=== PATIENT | male | born 1965 | race Hispanic/Latino ===

== ENCOUNTER 2019-02-25 09:00 | Emergency (ER) | payer BC, OTHER ==
[~2019-02-25] VITALS: Ht 165.1 cm; Wt 100.7 kg
[2019-02-25] MEDS ORDERED: PANTOPRAZOLE 40 MG 10ML VIAL IV STA (10:01)
[2019-02-25] MEDS ORDERED: SODIUM CHLORIDE 0.9% 1000ML 1,000 ML IV STA (10:01)
[2019-02-25] MEDS ORDERED: ONDANSETRON HCL INJ 2MG/ML 2ML 2 MG/ML VIAL IV STA (10:01)
[2019-02-25] MEDS ORDERED: SODIUM CHLORIDE 0.9% 1000ML 1,000 ML ONE (10:06)
[2019-02-25 10:31] LABS: BASOPHILS # (AUTO) 0.1 (0.0-0.1); BASOPHILS % 0.8 % (0.0-1.0); EOSINOPHILS # (AUTO) 0.1 (0.0-0.4); EOSINOPHILS % 0.7 % (0.0-6.0); HEMATOCRIT 44.2 % (38.2-49.6); HEMOGLOBIN 15.2 g/dL (14.0-18.0); LYMPHOCYTES # (AUTO) 1.3 (1.0-3.2); MEAN CORPUSCULAR HEMOGLOBIN 29.3 pg (28-32); MEAN CORPUSCULAR HGB CONC 34.4 g/dL (31-35); MEAN CORPUSCULAR VOLUME 85.3 fL (81-99); MONOCYTES # (AUTO) 0.4 (0.2-0.8); MONOCYTES % 4.5 % (4.4-11.3); NEUTROPHILS # (AUTO) 7.1 (2.1-6.9); NEUTROPHILS % 79.8 % (38.7-80.0); PLATELET COUNT 261 x10e3/uL (140-360); RED BLOOD COUNT 5.18 x10e6/uL (4.3-5.7); RED CELL DISTRIBUTION WIDTH 12.7 % (11.7-14.4)
[2019-02-25 10:33] LABS: BILIRUBIN,URINE NEGATIVE (NEGATIVE); CLARITY,URINE CLEAR (CLEAR); COLOR,URINE YELLOW (YELLOW); KETONES,URINE TRACE (NEGATIVE); LEUKOCYTE ESTERASE ,URINE NEGATIVE (NEGATIVE); NITRITE,URINE NEGATIVE (NEGATIVE); PROTEIN,URINE DIPSTICK NEGATIVE (NEGATIVE); URINE UROBILINOGEN 0.2 mg/dL (0.2 - 1)
[2019-02-25 10:38] LABS: INR 0.99; PROTHROMBIN TIME 13.6 seconds (11.9-14.5)
[2019-02-25 10:39] LABS: PARTIAL THROMBOPLASTIN TIME 32.1 seconds (23.8-35.5)
[2019-02-25 10:48] LABS: RBC,URINE 0-5 /HPF (0-5); WBC,URINE (MAN) 0-5 /HPF (0-5)
[2019-02-25 10:49] LABS: BACTERIA,URINE FEW /HPF; EPITHELIAL CELLS,URINE RARE /LPF
[2019-02-25 10:51] LABS: ALANINE AMINOTRANSFERASE 29 IU/L (0-55); ALBUMIN 3.9 g/dL (3.5-5.0); ALBUMIN/GLOBULIN RATIO 0.9 (0.8-2.0); ALKALINE PHOSPHATASE 92 IU/L (40-150); ANION GAP 11.8 mmol/L (8-16); BLOOD UREA NITROGEN 14 mg/dL (7-26); BUN/CREATININE RATIO 17 (6-25); CALCIUM 9.8 mg/dL (8.4-10.2); CARBON DIOXIDE 23 mmol/L (22-29); CHLORIDE 104 mmol/L (98-107); CREATININE, SERUM 0.83 mg/dL (0.72-1.25); EST GLOMERULAR FILTRATION RATE > 60 ML/MIN (60-); GLUCOSE 117 mg/dL (74-118); POTASSIUM 3.8 mmol/L (3.5-5.1); SODIUM 135 mmol/L (136-145)
[2019-02-25 10:57] LABS: CREATINE KINASE 218 IU/L (30-200)
[2019-02-25] MEDS ORDERED: FAMOTIDINE 20 MG/2 ML VIAL IV STA (11:04)
[2019-02-25 11:07] LABS: AMYLASE 36 U/L (25-125); LIPASE 20 U/L (8-78)
[2019-02-25] MEDS ORDERED: DIATRIZOATE MEGL/DIATRIZOA SOD 30 ML BTL PO ONE (11:30)
[2019-02-25] MEDS ORDERED: MORPHINE SULFATE INJ 4 MG/ML INJ 1ML IV ONE (11:30)
--- NOTE | 2019-02-25 13:30 | Diagnostic Imaging Report ---
EXAM: CT Abdomen and Pelvis WITH contrast INDICATION: Upper abdominal pain. COMPARISON: None. TECHNIQUE: Abdomen and pelvis were scanned utilizing a multidetector helical scanner from the lung base to the pubic symphysis after administration of IV contrast. Coronal and sagittal reformations were obtained. Routine protocol was performed. Scan was performed when during portal venous phase. IV CONTRAST: 100 cc of Isovue 370 ORAL CONTRAST: Gastrografin COMPLICATIONS: None RADIATION DOSE: Total DLP: 773.4 mGy*cm Dose modulation, iterative reconstruction, and/or weight based adjustment of the mA/kV was utilized to reduce the radiation dose to as low as reasonably achievable. FINDINGS: LINES and TUBES: None. LOWER THORAX: There is a 3 mm groundglass nodule in the right middle lobe on series 2, image 3. HEPATOBILIARY: Diffuse mild hepatic steatosis. Subcentimeter right hepatic lobe hypodensities are too small to characterize, but likely represents a cyst. No biliary ductal dilation. GALLBLADDER: No radio-opaque stones or sludge. No wall thickening. SPLEEN: No splenomegaly. Subcentimeter splenic hypodensities are too small to characterize. PANCREAS: No focal masses or ductal dilatation. ADRENALS: No adrenal nodules KIDNEYS/URETERS: Kidneys enhance symmetrically. No evidence of hydronephrosis, solid mass, or stone. GI TRACT: No evidence of wall thickening or distension. Appendix is normal. PELVIC ORGANS/BLADDER: Unremarkable. LYMPH NODES: No lymphadenopathy. VESSELS: There is mild atherosclerotic disease in the aorta and major arterial branches. PERITONEUM / RETROPERITONEUM: No free air or fluid. BONES AND SOFT TISSUES: No acute osseous abnormality. No suspicious lytic or blastic lesions. Bilateral fat-containing inguinal hernias. CONCLUSION: Diffuse mild hepatic steatosis. A 3 mm groundglass nodule in the right middle lobe, likely infectious or inflammatory. Signed by: Dr. Franc Suazo MD on 02/25/2019 1:27 PM
[2019-02-25 14:07] VITALS: BP 163/98
[2019-02-25] MEDS ORDERED: IOPAMIDOL 370 MG/ML 200 ML INFUS..BTL INJ ONE (17:33)
[2019-02-25] MEDS ORDERED: SODIUM CHLORIDE 0.9% 50ML 50 ML ONE (17:33)
== END 2019-02-25 14:23 | disposition home or self-care (01) ==
LOC: ER 09:00
DX: K59.00 Constipation, unspecified (principal); R10.11 Right upper quadrant pain; R91.8 Other nonspecific abnormal finding of lung field; R10.13 Epigastric pain; R10.12 Left upper quadrant pain
CPT/HCPCS: 36415; 74177; 80053; 81001; 82150; 82550; 82553; 83605; 83690; 83735; 84484; 85025; 85610; 85730; 93005; 99284; J2270; J2405; J7030; Q9967

== ENCOUNTER 2019-02-25 21:56 | Emergency (ER) | payer BC ==
[~2019-02-25] VITALS: Ht 165.1 cm; Wt 100.7 kg
--- OUTSIDE RECORDS SUMMARY | 2019-02-25 21:58 | XMS REPORT ---
Author Author [facility] Address Unknown Phone Unavailable Care Team Providers Care Physician/Internist Name Role Phone Kaushik DELONG Unavailable Unavailable Problems This patient has no known problems. Allergies, Adverse Reactions, Alerts This patient has no known allergies or adverse reactions. Medications This patient has no known medications. Results Test Description Test Time Test Comments Text Results Atomic Results Result Comments CT ABDOMEN/PELVIS W 2019-02-25 13:10:00 [place] [address] Patient Name: GREGORY LAIRD MR #: [id number] : 1965 Age/Sex: 53/M Req #: [id number] Adm Physician: Ordered by: KRISHAN DELONG MD Report #: [id number] Location: ER Room/Bed: Procedure: [id number] CT/CT ABDOMEN/PELVIS W Exam Date: 02/25/19 Exam Time: 1245 REPORT STATUS: Signed EXAM: CT Abdomen and Pelvis WITH contrast INDICATION: Upper abdominal pain. COMPARISON: None. TECHNIQUE: Abdomen and pelvis were scanned utilizing a multidetector helical scanner from the lung base to the pubic symphysis after administration of IV contrast. Coronal and sagittal reformations were obtained. Routine protocol was performed. Scan was performed when during portal venous phase. IV CONTRAST: 100 cc of Isovue 370 ORAL CONTRAST: Gastrografin COMPLICATIONS: None RADIATION DOSE: Total DLP: 773.4 mGy*cm Dose modulation, iterative reconstruction, and/or weight based adjustment of the mA/kV was utilized to reduce the radiation dose to as low as reasonably achievable. FINDINGS: LINES and TUBES: None. LOWER THORAX: There is a 3 mm groundglass nodule in the right middle lobe on series 2, image 3. HEPATOBILIARY: Diffuse mild hepatic steatosis. Subcentimeter right hepatic lobe hypodensities are too small to characterize, but likely represents a cyst. No biliary ductal dilation. GALLBLADDER: No radio-opaque stones or sludge. No wall thickening. SPLEEN: No splenomegaly. Subcentimeter splenic hypodensities are too small to characterize. PANCREAS: No focal masses or ductal dilatation. ADRENALS: No adrenal nodules KIDNEYS/URETERS: Kidneys enhance symmetrically. No evidence of hydronephrosis, solid mass, or stone. GI TRACT: No evidence of wall thickening or distension. Appendix is normal. PELVIC ORGANS/BLADDER: Unremarkable. LYMPH NODES: No lymphadenopathy. VESSELS: There is mild atherosclerotic disease in the aorta and major arterial branches. PERITONEUM / RETROPERITONEUM: No free air or fluid. BONES AND SOFT TISSUES: No acute osseous abnormality. No suspicious lytic or blastic lesions. Bilateral fat-containing inguinal hernias. CONCLUSION: Diffuse mild hepatic steatosis. A 3 mm groundglass nodule in the right middle lobe, likely infectious or inflammatory. Signed by: Dr. Darrin Ho MD on 02/25/2019 1:27 PM Dictated By: DARRIN HO MD [id number] Transcribed By: SIMI on 02/25/19 1327 COPY TO: KRISHAN DELONG MD
[2019-02-25] MEDS ORDERED: LIDOCAINE VISC 2% SOLN 15 ML UDC ONE (22:22)
[2019-02-25] MEDS ORDERED: BELLADONNA ALK/PHENOBARBITAL 5 ML UDC ONE (22:23)
[2019-02-25] MEDS ORDERED: MAGNESIUM/ALUMINUM/SIMETHICONE 30 ML UDC ONE (22:23)
[2019-02-25] MEDS ORDERED: DONNATAL/LIDOCAINE/MAALOX 30 ML SUSP PO SCH (22:30)
--- NOTE | 2019-02-25 22:31 | NUR ---
REPORTS FEELS BETTER AFTER GI COCKTAIL. MSE PER ERP. PT ELECTED NOT TO CONTINUE, WILL FOLLOW-UP WITH PRIMARY CARE PROVIDER
== END 2019-02-25 22:33 | disposition left against medical advice (07) ==
LOC: ER 21:56
DX: Z53.21 Procedure and treatment not carried out due to patient leaving prior to being seen by health care provider (principal)

== ENCOUNTER 2019-02-27 09:34 | Inpatient (IN) | payer BC ==
[~2019-02-27] VITALS: Ht 167.6 cm; Wt 98.0 kg
[2019-02-27] MEDS ORDERED: MORPHINE SULFATE 2 MG/ML SYR 1ML IV STA (10:54)
[2019-02-27] MEDS ORDERED: ONDANSETRON HCL INJ 2MG/ML 2ML 2 MG/ML VIAL IV STA (10:54)
[2019-02-27] MEDS ORDERED: SODIUM CHLORIDE 0.9% 1000ML 1,000 ML IV ONE (11:00)
[2019-02-27] MEDS ORDERED: MORPHINE SULFATE INJ 4 MG/ML INJ 1ML IV NR (11:00)
[2019-02-27] MEDS ORDERED: SODIUM CHLORIDE 0.9% 1000ML 1,000 ML ONE (11:00)
--- NOTE | 2019-02-27 11:01 | Diagnostic Imaging Report ---
EXAMINATION: CHEST SINGLE (PORTABLE) INDICATION: Abdominal pain, trauma. COMPARISON: None FINDINGS: TUBES and LINES: None. LUNGS: Lungs are moderately inflated. There is no evidence of pneumonia or pulmonary edema. PLEURA: No pleural effusion or pneumothorax. HEART AND MEDIASTINUM: The cardiomediastinal silhouette is unremarkable. BONES AND SOFT TISSUES: No acute osseous abnormality. UPPER ABDOMEN: No free air under the diaphragm. IMPRESSION: No acute radiographic abnormality. Signed by: Dr. Franc Suazo MD on 02/27/2019 10:58 AM
[2019-02-27 11:04] LABS: BILIRUBIN,URINE NEGATIVE (NEGATIVE); CLARITY,URINE SL CLOUDY (CLEAR); COLOR,URINE YELLOW (YELLOW); KETONES,URINE 1+ (NEGATIVE); LEUKOCYTE ESTERASE ,URINE NEGATIVE (NEGATIVE); NITRITE,URINE NEGATIVE (NEGATIVE); PROTEIN,URINE DIPSTICK TRACE (NEGATIVE); URINE UROBILINOGEN 0.2 mg/dL (0.2 - 1)
[2019-02-27 11:06] LABS: INR 0.99; PROTHROMBIN TIME 13.6 seconds (11.9-14.5)
[2019-02-27 11:07] LABS: PARTIAL THROMBOPLASTIN TIME 30.3 seconds (23.8-35.5)
[2019-02-27 11:11] LABS: BASOPHILS # (AUTO) 0.1 (0.0-0.1); BASOPHILS % 0.5 % (0.0-1.0); EOSINOPHILS % 0.1 % (0.0-6.0); HEMATOCRIT 45.5 % (38.2-49.6); LYMPHOCYTES # (AUTO) 1.8 (1.0-3.2); LYMPHOCYTES % 14.4 % (18.0-39.1); MEAN CORPUSCULAR HEMOGLOBIN 29.3 pg (28-32); MEAN CORPUSCULAR HGB CONC 35.2 g/dL (31-35); MEAN CORPUSCULAR VOLUME 83.3 fL (81-99); MONOCYTES # (AUTO) 0.6 (0.2-0.8); MONOCYTES % 5.1 % (4.4-11.3); NEUTROPHILS # (AUTO) 9.6 (2.1-6.9); NEUTROPHILS % 79.5 % (38.7-80.0); PLATELET COUNT 307 x10e3/uL (140-360); RED BLOOD COUNT 5.46 x10e6/uL (4.3-5.7); RED CELL DISTRIBUTION WIDTH 12.7 % (11.7-14.4)
[2019-02-27 11:15] LABS: ALANINE AMINOTRANSFERASE 25 IU/L (0-55); ALBUMIN 4.2 g/dL (3.5-5.0); ALKALINE PHOSPHATASE 90 IU/L (40-150); AMYLASE 29 U/L (25-125); ANION GAP 11.9 mmol/L (8-16); BLOOD UREA NITROGEN 16 mg/dL (7-26); BUN/CREATININE RATIO 17 (6-25); CALCIUM 9.7 mg/dL (8.4-10.2); CARBON DIOXIDE 26 mmol/L (22-29); CHLORIDE 100 mmol/L (98-107); CREATINE KINASE 258 IU/L (30-200); CREATININE, SERUM 0.92 mg/dL (0.72-1.25); EST GLOMERULAR FILTRATION RATE > 60 ML/MIN (60-); GLUCOSE 122 mg/dL (74-118); LIPASE 16 U/L (8-78); MAGNESIUM 2.3 MG/DL (1.3-2.1); POTASSIUM 3.9 mmol/L (3.5-5.1); SODIUM 134 mmol/L (136-145)
[2019-02-27 11:18] LABS: RBC,URINE 0-5 /HPF (0-5)
[2019-02-27 11:19] LABS: BACTERIA,URINE RARE /HPF; EPITHELIAL CELLS,URINE RARE /LPF
--- NOTE | 2019-02-27 13:58 | Diagnostic Imaging Report ---
EXAM: CT Abdomen and Pelvis WITH contrast INDICATION: Upper abdominal pain post trauma, x1 week COMPARISON: None. TECHNIQUE: Abdomen and pelvis were scanned utilizing a multidetector helical scanner from the lung base to the pubic symphysis after administration of IV contrast. Coronal and sagittal reformations were obtained. Routine protocol was performed. Scan was performed when during portal venous phase. IV CONTRAST: 100 cc of Isovue 370 ORAL CONTRAST: Water COMPLICATIONS: None RADIATION DOSE: Total DLP: 773.8 mGy*cm Dose modulation, iterative reconstruction, and/or weight based adjustment of the mA/kV was utilized to reduce the radiation dose to as low as reasonably achievable. FINDINGS: LINES and TUBES: None. LOWER THORAX: There is a 3 mm groundglass nodule in the right middle lobe on series 2, image 2. Scattered coronary atherosclerosis. HEPATOBILIARY: Diffuse mild hepatic steatosis. Subcentimeter right hepatic lobe hypodensities are too small to characterize, but likely represents a cyst. No biliary ductal dilation. GALLBLADDER: No radio-opaque stones or sludge. No wall thickening. SPLEEN: No splenomegaly. Subcentimeter splenic hypodensities are too small to characterize. PANCREAS: No focal masses or ductal dilatation. ADRENALS: No adrenal nodules KIDNEYS/URETERS: Kidneys enhance symmetrically. No evidence of hydronephrosis, solid mass, or stone. GI TRACT: No evidence of wall thickening or distension. Appendix is normal. PELVIC ORGANS/BLADDER: Unremarkable. LYMPH NODES: No lymphadenopathy. VESSELS: There is mild atherosclerotic disease in the aorta and major arterial branches. PERITONEUM / RETROPERITONEUM: No free air or fluid. BONES AND SOFT TISSUES: No acute osseous abnormality. No suspicious lytic or blastic lesions. Bilateral fat-containing inguinal hernias. CONCLUSION: No evidence of acute traumatic abnormality in the abdomen or pelvis. No interval change since CT on 02/25/2019. Diffuse mild hepatic steatosis. Scattered coronary atherosclerosis. A 3 mm groundglass nodule in the right middle lobe, likely infectious or inflammatory. Signed by: Dr. Franc Suazo MD on 02/27/2019 1:54 PM
[2019-02-27] MEDS ORDERED: PANTOPRAZOLE SOD 40 MG TABEC PO ONE (15:00)
[2019-02-27] MEDS ORDERED: MORPHINE SULFATE 2 MG/ML SYR 1ML IV PRN (15:00)
[2019-02-27 15:38] VITALS: BP 138/85
[2019-02-27] MEDS ORDERED: SODIUM CHLORIDE 0.9% 50ML 50 ML ONE (15:49)
[2019-02-27] MEDS ORDERED: IOPAMIDOL 370 MG/ML 200 ML INFUS..BTL INJ ONE (15:49)
[2019-02-27 16:49] VITALS: BP 138/85
[2019-02-27] MEDS: MORPHINE SULFATE INJ 4 MG/ML INJ 1ML IV PRN (17:16)
[2019-02-27] MEDS ORDERED: PANTOPRAZOLE INJ 40 MG in SODIUM CHLORIDE 0.9% 50ML 50 ML IV SCH (18:30)
[2019-02-27 20:00] VITALS: BP 167/94
[2019-02-27] MEDS: PANTOPRAZOL 40MG/SOD CHL 0.9% 50 ML IV SCH (21:06)
[2019-02-28] VITALS (9 sets, daily range): BP systolic 132–171; BP diastolic 72–98
[2019-02-28] MEDS: PANTOPRAZOL 40MG/SOD CHL 0.9% 50 ML IV SCH ×5 (00:38→19:45)
[2019-02-28] MEDS: MORPHINE SULFATE INJ 4 MG/ML INJ 1ML IV PRN ×2 (06:00→14:56)
[2019-02-28] MEDS: ONDANSETRON HCL INJ 2MG/ML 2ML 2 MG/ML VIAL IV PRN ×2 (06:00→14:56)
[2019-02-28 06:12] LABS: BASOPHILS # (AUTO) 0.1 (0.0-0.1); BASOPHILS % 0.9 % (0.0-1.0); EOSINOPHILS # (AUTO) 0.2 (0.0-0.4); EOSINOPHILS % 1.7 % (0.0-6.0); HEMATOCRIT 47.7 % (38.2-49.6); HEMOGLOBIN 15.7 g/dL (14.0-18.0); LYMPHOCYTES # (AUTO) 3.1 (1.0-3.2); LYMPHOCYTES % 27.3 % (18.0-39.1); MEAN CORPUSCULAR HEMOGLOBIN 28.5 pg (28-32); MEAN CORPUSCULAR HGB CONC 32.9 g/dL (31-35); MEAN CORPUSCULAR VOLUME 86.7 fL (81-99); MONOCYTES # (AUTO) 0.7 (0.2-0.8); MONOCYTES % 6.4 % (4.4-11.3); NEUTROPHILS # (AUTO) 7.2 (2.1-6.9); NEUTROPHILS % 63.5 % (38.7-80.0); PLATELET COUNT 286 x10e3/uL (140-360); RED CELL DISTRIBUTION WIDTH 12.7 % (11.7-14.4)
[2019-02-28] MEDS ORDERED: PANTOPRAZOLE SOD 40 MG TABEC PO SCH (07:30)
--- NOTE | 2019-02-28 11:46 | Diagnostic Imaging Report ---
EXAM: Right upper quadrant abdominal ultrasound INDICATION: Abdominal pain. COMPARISON: CT abdomen/pelvis 02/27/2019. TECHNIQUE: Transverse and longitudinal images of the right upper quadrant abdomen were obtained FINDINGS: Liver: Size: 14.8 cm in the right midclavicular line, normal Appearance: Increased echogenicity, smooth contour Mass: No focal masses Gallbladder: No distension, pericholecystic fluid, wall thickening, stone, or reported sonographic Chiang's sign. Gallbladder wall measures 0.2 cm. Bile Ducts: Intrahepatic Ducts: No dilatation Extrahepatic Ducts: Common bile duct measures 0.2 cm, no dilatation Pancreas: Limited evaluation due to overlying bowel gas. Kidney: The right kidney measures 11.8 cm without evidence of hydronephrosis or stone. Vessels: Aorta: Limited evaluation due to overlying bowel gas. Inferior Vena Cava: Visualized portions are normal Main Portal Vein: 0.8 cm, normal size with hepatopetal flow. Free Fluid: No ascites or pleural effusion IMPRESSION: Hepatic steatosis. No sonographic evidence of cholelithiasis or cholecystitis. Signed by: Dr. Franc Suazo MD on 02/28/2019 11:42 AM
--- NOTE | 2019-02-28 15:46 | Diagnostic Imaging Report ---
Hepatobiliary Scan with Gallbladder Ejection Fraction Clinical information: Abdominal pain Technique: Following intravenous administration of 6.6 millicuries of Tc-99m mebrofenin, dynamic images of the abdomen in the anterior projection were obtained through 30 minutes. Additional static image was obtained at 60 minutes. Sincalide (CCK analog) 2.1 micrograms was administered intravenously over 30 minutes with additional imaging for determination of gallbladder ejection fraction. Discussion: Perfusion of the liver is normal. Extraction of tracer by the liver parenchyma is normal. Tracer appears promptly within the biliary tract. The gallbladder begins to fill by 12 minutes post injection of tracer and fills adequately. Tracer is seen in the small bowel by 60 minutes. The gallbladder ejection fraction with sincalide is 18% (normal greater than 40%). Impression: Filling of the gallbladder excludes acute cystic duct obstruction/acute cholecystitis. The decreased gallbladder ejection fraction of 18% supports the clinical diagnosis of chronic cholecystitis/gallbladder dyskinesia. Signed by: Dr. Jo-Ann Dickinson M.D. on 02/28/2019 3:43 PM
[2019-02-28] MEDS: AMLODIPINE BESYLATE 5 MG TAB PO SCH (17:10)
--- NOTE | 2019-02-28 17:23 | Progress Note ---
DATE: Internal Medicine Progress Note The patient came here complaining of severe epigastric pain, which has been going on for several weeks, but it got worse lately. The patient has been seen by Dr. Jalil Cox, who ordered a HIDA scan with ejection fraction. Apparently preliminary report on the HIDA scan his ejection fracture is only 13%, which makes the diagnosis so far dysfunctional gallbladder, so we are going to get a surgical consult for possible cholecystectomy. PHYSICAL EXAMINATION: HEART: Showed regular rhythm. Normal S1, S2 sound. LUNGS: Clear bilaterally. ABDOMEN: Soft. He has epigastric area pain and tenderness. EXTREMITIES: Show no evidence of cyanosis or hematoma. VITAL SIGNS: Blood pressure 164/91, temperature 97.9, heart rate 76 per minute, respiratory rate 20 per minute, oxygen saturation 98%. LABORATORY DATA: On CBC; white blood count is 11.29, hemoglobin 15.7, hematocrit 47.7, platelet count 286,000. On BMP; sodium 134, potassium 3.9, chloride 100, CO2 of 26, BUN 16, creatinine 0.92, glucose 122, calcium 9.7, magnesium 2.3, total bilirubin 0.9, AST 18, ALT 25, alkaline phosphatase 90, creatine kinase 258, CK-MB 1.80. Troponin 0.001. Total protein 8.4, albumin 4.2, amylase 29, and lipase 16. On the coagulation PT 13.6, INR 0.99, PTT 30.3. Urinalysis showed ketones and blood. We had a chest x-ray, which was normal. We had a CT of the abdomen and pelvis, which showed no evidence of acute traumatic abnormality in the abdomen or pelvis. No intervention. CT on February 25, 2019. Mild diffuse hepatic steatosis. Scattered coronary atherosclerosis. A 3 mm ground-glass nodule in the right middle lobe, likely infectious and inflammatory. Also gallbladder ultrasound has been done, which show hepatic steatosis. No sonographic evidence of cholecystitis or choledocholithiasis. FINAL IMPRESSION: 1. Epigastric pain. 2. Gallbladder dyskinesia. 3. Obesity. 4. Hyponatremia. 5. Hypertension. 6. Fatty liver. PLAN OF TREATMENT: P.o. IV fluids. Continue Protonix, Zofran, and morphine. Dr. Jalil Cox has been consulted from the gastroenterology point of view. We are going to get a surgical consult with Dr. Deangelo Bullock. MD FALGUNI Gilbert/DHRUV /[id number]
[2019-02-28] MEDS: DEXTROSE 5%/0.9% SOD CHL 1,000 ML IV SCH (17:32)
[2019-03-01] VITALS (8 sets, daily range): BP systolic 123–181; BP diastolic 79–98
[2019-03-01] MEDS: PANTOPRAZOL 40MG/SOD CHL 0.9% 50 ML IV SCH ×5 (00:45→20:45)
[2019-03-01] MEDS: DEXTROSE 5%/0.9% SOD CHL 1,000 ML IV SCH ×3 (02:00→22:00)
[2019-03-01] MEDS: MORPHINE SULFATE INJ 4 MG/ML INJ 1ML IV PRN ×3 (05:27→23:43)
[2019-03-01] MEDS ORDERED: BUPIVACAINE 0.25%/EPI 30ML SDV INJ ONE (06:39)
[2019-03-01] MEDS ORDERED: HYDROMORPHONE 2MG/ML 2 MG/ML ML ONE ×2 (08:57→10:19)
[2019-03-01] MEDS ORDERED: AMLODIPINE BESYLATE 5 MG TAB PO SCH (09:00)
[2019-03-01] MEDS ORDERED: ACETAMINOPHEN 1000 MG/100 ML IV PRN (10:00)
[2019-03-01] MEDS ORDERED: FENTANYL CITRATE/PF 100MCG/2 ML INJ ONE (10:11)
[2019-03-01] MEDS ORDERED: ONDANSETRON HCL INJ 2MG/ML 2ML 2 MG/ML VIAL ONE ×2 (10:16→10:51)
[2019-03-01] MEDS ORDERED: PROMETHAZINE HCL (IM) 25 MG/ML VIAL ONE (10:19)
[2019-03-01] MEDS ORDERED: ROCURONIUM BROMIDE 10 MG/ML 5ML VIAL ONE (10:51)
[2019-03-01] MEDS ORDERED: SEVOFLURANE INHAL SOLN 250 ML PEN BTL ONE (10:51)
[2019-03-01] MEDS ORDERED: DEXAMETHASONE SOD PHOS INJ 4 MG/ML VIAL ONE (10:51)
[2019-03-01] MEDS ORDERED: ACETAMINOPHEN 1000 MG/100 ML IV ONE (10:51)
[2019-03-01] MEDS ORDERED: GLYCOPYRROLATE INJ 1MG/ 5 ML SYR ONE (10:51)
[2019-03-01] MEDS ORDERED: LIDOCAINE HCL 2% LOCAL INJ 5 ML SDV VIAL INJ ONE (10:51)
[2019-03-01] MEDS ORDERED: EPHEDRINE SULFATE INJ 50 MG/10 ML SYR ONE (10:51)
[2019-03-01] MEDS ORDERED: NEOSTIGMINE 5 MG/5ML SYR ONE (10:51)
[2019-03-01] MEDS ORDERED: PROPOFOL IV EMULSION 10 MG/ML 20 ML VIAL ONE (10:51)
[2019-03-01] MEDS: HYDROCODONE/APAP 7.5MG-325MG 1 EA TAB PO PRN ×2 (12:08→19:52)
[2019-03-01] MEDS: CEFOXITIN 1GM/ D5W 50ML 50 ML IV SCH ×3 (12:08→23:43)
[2019-03-01] MEDS: AMLODIPINE BESYLATE 5 MG TAB PO SCH (12:08)
[2019-03-01 12:48] LABS: BASOPHILS % 0.2 % (0.0-1.0); EOSINOPHILS % 0.1 % (0.0-6.0); HEMATOCRIT 45.3 % (38.2-49.6); HEMOGLOBIN 15.8 g/dL (14.0-18.0); LYMPHOCYTES # (AUTO) 0.8 (1.0-3.2); LYMPHOCYTES % 5.9 % (18.0-39.1); MEAN CORPUSCULAR HEMOGLOBIN 29.1 pg (28-32); MEAN CORPUSCULAR HGB CONC 34.9 g/dL (31-35); MEAN CORPUSCULAR VOLUME 83.4 fL (81-99); MONOCYTES # (AUTO) 0.4 (0.2-0.8); MONOCYTES % 3.1 % (4.4-11.3); NEUTROPHILS # (AUTO) 12.6 (2.1-6.9); NEUTROPHILS % 90.3 % (38.7-80.0); PLATELET COUNT 264 x10e3/uL (140-360); RED BLOOD COUNT 5.43 x10e6/uL (4.3-5.7); RED CELL DISTRIBUTION WIDTH 12.6 % (11.7-14.4)
[2019-03-01] MEDS ORDERED: ACETAMINOPHEN 325 MG TAB PO PRN (14:30)
--- NOTE | 2019-03-01 16:03 | Operative Report ---
DATE OF PROCEDURE: 03/01/2019 SURGEON: Deangelo Bullock MD PREOPERATIVE DIAGNOSIS: Biliary dyskinesia. POSTOPERATIVE DIAGNOSIS: Biliary dyskinesia. OPERATION PERFORMED: Laparoscopic cholecystectomy. ANESTHESIA: General. COMPLICATIONS: None. ESTIMATED BLOOD LOSS: Minimal. DESCRIPTION OF PROCEDURE: With the patient lying in bed in the supine position under good general endotracheal anesthesia, the abdomen was prepped with Betadine solution and draped in the usual manner. A Veress needle was introduced into the right upper quadrant and pneumoperitoneum was established without any difficulty. A 5 mm trocar was placed in the right subcostal region and a 5 mm videolaparoscope was placed into the intra-abdominal cavity. Videolaparoscopy at this point revealed that there were no adhesions to the subumbilical area. There was 1 small adhesion of the small bowel in the right lower quadrant. An 11 mm trocar was then placed into the umbilicus and a 10 mm videolaparoscope was placed into the intra-abdominal cavity. The right lower quadrant adhesion was taken down AND rest of the abdomen at this point revealed some adhesions in the epigastric area of the omentum to the anterior abdominal wall. There was no sign of any inflammatory process going on. The rest of the abdominal cavity other than some adhesions in the left lower quadrant from the patient's previous colon resection were within normal limits. The gallbladder was tightly distended and the liver appeared to be within normal limits. The peritoneum overlying the neck of the gallbladder was then slowly and carefully opened. The cystic duct was identified. The cystic duct was followed to its junction with the common duct. The cystic duct was then circumferentially dissected away from the common duct, doubly clipped and divided. The cystic artery was similarly doubly clipped and divided. The gallbladder was then slowly and carefully taken off the liver bed using the cautery scissors and perfect hemostasis was ascertained. The gallbladder was placed in a pouch and removed through the umbilicus without any difficulty. Videolaparoscopy was then again carried out. The liver bed was found to be perfectly dry. All of the excess fluid was aspirated. The pneumoperitoneum was evacuated and all the trocars were removed under direct vision. The midline fascia of the umbilicus was then closed with a [id number] 0-Vicryl. All layers were infiltrated on the way out with solution of 0.25% Marcaine. Subcutaneous tissue was approximated with 3-0 Vicryl and the skin was closed with subcuticular 5-0 Vicryl. Benzoin, Steri-Strips, and Band-Aids were applied. The sponge, lap, and needle count was correct. The patient tolerated the procedure well and returned to the recovery room in stable condition. MD MYRA Garza/DHRUV /[id number] MTDGil
--- NOTE | 2019-03-01 17:12 | Progress Note ---
DATE: Internal Medicine Progress Note. SUBJECTIVE: The patient had a cholecystectomy done by Dr. Bullock. He is of course in pain after surgery. OBJECTIVE: HEART: Showed regular rhythm. Normal S1, S2 sound. LUNGS: Clear bilaterally. ABDOMEN: Soft. EXTREMITIES: Show no evidence of cyanosis or hematoma. VITAL SIGNS: Blood pressure 135/85, temperature 98 degrees, heart rate 79 per minute, respiratory rate is 20 per minute, and oxygen saturation 98%. LABORATORY DATA: BMP, sodium 134, potassium 3.9, chloride 100, CO2 of 26, BUN 16, and creatinine 0.82. Glucose 122. CBC, white blood count 14.0, hemoglobin 15.8, hematocrit 45.3, and platelet count 254,000. PT 13.6. INR 0.99. PTT 30.3. AST 18 and ALT 25. Total bilirubin 0.9 and alkaline phosphatase 90. ASSESSMENT: 1. Acute cholecystitis status post cholecystectomy. 2. Leukocytosis, which is resolving. 3. Obesity. 4. Hyponatremia. 5. Uncontrolled hypertension, which is better. 6. Rhabdomyolysis. PLAN OF TREATMENT: Continue Protonix drip. Continue cefoxitin. Continue D5 normal saline at 100 cc an hour. Continue Zofran 4 mg IV q.4 hours as needed, hydralazine 10 mg IV q.4 hours as needed, amlodipine 5 mg daily, Tylenol 1000 mg q.6 hours as needed, [place] 1 tablet q.4 hours as needed, and morphine 4 mg IV q.4 hours as needed. I want to continue monitoring BUN, creatinine, electrolytes, and repeat CBC tomorrow. Diet as tolerated. MD FALGUNI Gilbert/DHRUV /[id number]
[2019-03-02] VITALS (8 sets, daily range): BP systolic 126–180; BP diastolic 69–98
[2019-03-02] MEDS: PANTOPRAZOL 40MG/SOD CHL 0.9% 50 ML IV SCH ×5 (01:45→21:19)
[2019-03-02] MEDS: CEFOXITIN 1GM/ D5W 50ML 50 ML IV SCH ×4 (04:59→23:18)
[2019-03-02] MEDS: MORPHINE SULFATE INJ 4 MG/ML INJ 1ML IV PRN (04:59)
[2019-03-02 05:53] LABS: BASOPHILS # (AUTO) 0.1 (0.0-0.1); BASOPHILS % 0.6 % (0.0-1.0); EOSINOPHILS # (AUTO) 0.1 (0.0-0.4); EOSINOPHILS % 0.7 % (0.0-6.0); HEMATOCRIT 42.2 % (38.2-49.6); HEMOGLOBIN 14.1 g/dL (14.0-18.0); LYMPHOCYTES % 18.6 % (18.0-39.1); MEAN CORPUSCULAR HEMOGLOBIN 28.8 pg (28-32); MEAN CORPUSCULAR HGB CONC 33.4 g/dL (31-35); MEAN CORPUSCULAR VOLUME 86.1 fL (81-99); MONOCYTES # (AUTO) 0.9 (0.2-0.8); MONOCYTES % 7.9 % (4.4-11.3); NEUTROPHILS # (AUTO) 7.9 (2.1-6.9); NEUTROPHILS % 71.7 % (38.7-80.0); PLATELET COUNT 246 x10e3/uL (140-360); RED CELL DISTRIBUTION WIDTH 12.5 % (11.7-14.4)
[2019-03-02 06:26] LABS: ALANINE AMINOTRANSFERASE 91 IU/L (0-55); ALBUMIN 3.3 g/dL (3.5-5.0); ALBUMIN/GLOBULIN RATIO 0.9 (0.8-2.0); ALKALINE PHOSPHATASE 81 IU/L (40-150); AMYLASE 32 U/L (25-125); ANION GAP 11.3 mmol/L (8-16); BLOOD UREA NITROGEN 11 mg/dL (7-26); BUN/CREATININE RATIO 11 (6-25); CALCIUM 8.6 mg/dL (8.4-10.2); CARBON DIOXIDE 24 mmol/L (22-29); CHLORIDE 104 mmol/L (98-107); EST GLOMERULAR FILTRATION RATE > 60 ML/MIN (60-); GLUCOSE 116 mg/dL (74-118); POTASSIUM 3.3 mmol/L (3.5-5.1); SODIUM 136 mmol/L (136-145)
[2019-03-02] MEDS: DEXTROSE 5%/0.9% SOD CHL 1,000 ML IV SCH ×2 (08:00→18:00)
[2019-03-02] MEDS: AMLODIPINE BESYLATE 5 MG TAB PO SCH (08:26)
[2019-03-02] MEDS: HYDROCODONE/APAP 7.5MG-325MG 1 EA TAB PO PRN ×3 (08:26→17:05)
[2019-03-02] MEDS ORDERED: POTASSIUM CHLORIDE 20 MEQ TAB CR PO NR (14:30)
[2019-03-02] MEDS ORDERED: GADOBENATE DIMEGLUMINE 0 ML IV ONE (14:43)
--- NOTE | 2019-03-02 16:22 | Progress Note ---
DATE: Internal Medicine Progress Note SUBJECTIVE: The patient is doing well. No significant complaints except for pain in the incision site in the periumbilical area. OBJECTIVE: VITAL SIGNS: Blood pressure 141/79, temperature 99.1, heart rate 78 per minute, respiratory rate 18 per minute, and oxygen saturation 96%. HEART: Showed regular rhythm. Normal S1, S2 sound. LUNGS: Clear bilaterally. ABDOMEN: Soft. He has decreased breath sounds. LABORATORY DATA: On the BMP; sodium 136, potassium 3.3, chloride 104, CO2 24, BUN 11, creatinine 1.00, glucose 116. On CBC; white blood count 10.9, hemoglobin 14.1, hematocrit 42.2, platelet count 246,000. PT 13.6, PTT 30.3, INR 0.99. AST 59, ALT 91, alkaline phosphatase 81, and total bilirubin 1.3. FINAL IMPRESSION: 1. Acute cholecystitis, status post cholecystectomy. 2. Hyponatremia. 3. Obesity. 4. Hypokalemia. 5. Hypertension. 6. Rhabdomyolysis. 7. Fatty liver. 8. Elevated LFTs. PLAN OF TREATMENT: We are going to continue Protonix 40 mg IV daily, cefoxitin IV q.6 hours. Continue on the D5 normal saline at 100 mL an hour. Continue Zofran 4 mg IV q.4 hours as needed, Tylenol 325 mg q.4 hours as needed, hydralazine 10 mg IV q.4 hours as needed for hypertension, morphine 4 mg IV q.4 hours as needed for pain, Norvasc 5 mg daily, [place] 1 tablet q.4 hours as needed for embrsvmo-fl-tgrykd pain. Since the patient had increase in the LFTs and total bilirubin, we are going to do an MRCP just to make sure he does not have any common bile duct stones. White blood count is better than before. We are going to replace the potassium with 40 mEq today. We are going to repeat a CMP, lipase level tomorrow. We are going to recheck the magnesium level today. The patient has been informed of the testing that we are going to do . Ankur Escalera MD LAS/MODL /[id number]
[2019-03-02] MEDS: HYDRALAZINE HCL 20 MG/ML VIAL IV PRN (19:45)
[2019-03-03] VITALS: BP 150/72
[2019-03-03] MEDS: PANTOPRAZOL 40MG/SOD CHL 0.9% 50 ML IV SCH ×3 (01:58→12:45)
[2019-03-03 04:00] VITALS: BP 133/79
[2019-03-03] MEDS: DEXTROSE 5%/0.9% SOD CHL 1,000 ML IV SCH ×2 (04:59→13:43)
[2019-03-03] MEDS: CEFOXITIN 1GM/ D5W 50ML 50 ML IV SCH ×2 (05:28→12:51)
[2019-03-03] MEDS: HYDROCODONE/APAP 7.5MG-325MG 1 EA TAB PO PRN (05:35)
[2019-03-03 05:39] LABS: BASOPHILS # (AUTO) 0.1 (0.0-0.1); BASOPHILS % 0.7 % (0.0-1.0); EOSINOPHILS # (AUTO) 0.1 (0.0-0.4); EOSINOPHILS % 1.1 % (0.0-6.0); HEMOGLOBIN 15.8 g/dL (14.0-18.0); LYMPHOCYTES # (AUTO) 2.5 (1.0-3.2); LYMPHOCYTES % 21.2 % (18.0-39.1); MEAN CORPUSCULAR HEMOGLOBIN 29.1 pg (28-32); MEAN CORPUSCULAR HGB CONC 35.1 g/dL (31-35); MEAN CORPUSCULAR VOLUME 82.9 fL (81-99); MONOCYTES # (AUTO) 0.9 (0.2-0.8); MONOCYTES % 7.6 % (4.4-11.3); NEUTROPHILS % 69.1 % (38.7-80.0); PLATELET COUNT 275 x10e3/uL (140-360); RED BLOOD COUNT 5.43 x10e6/uL (4.3-5.7); RED CELL DISTRIBUTION WIDTH 12.5 % (11.7-14.4)
[2019-03-03 05:59] LABS: ALANINE AMINOTRANSFERASE 114 IU/L (0-55); ALBUMIN 3.5 g/dL (3.5-5.0); ALBUMIN/GLOBULIN RATIO 0.9 (0.8-2.0); ALKALINE PHOSPHATASE 104 IU/L (40-150); ANION GAP 12.4 mmol/L (8-16); BLOOD UREA NITROGEN 9 mg/dL (7-26); BUN/CREATININE RATIO 9 (6-25); CALCIUM 9.1 mg/dL (8.4-10.2); CARBON DIOXIDE 22 mmol/L (22-29); CHLORIDE 102 mmol/L (98-107); CREATININE, SERUM 0.99 mg/dL (0.72-1.25); EST GLOMERULAR FILTRATION RATE > 60 ML/MIN (60-); GLUCOSE 112 mg/dL (74-118); LIPASE 41 U/L (8-78); POTASSIUM 3.4 mmol/L (3.5-5.1); SODIUM 133 mmol/L (136-145)
[2019-03-03] MEDS: HYDRALAZINE HCL 20 MG/ML VIAL IV PRN (08:18)
[2019-03-03] MEDS: AMLODIPINE BESYLATE 5 MG TAB PO SCH (08:18)
[2019-03-03 08:49] VITALS: BP 180/104
[2019-03-03 09:08] VITALS: BP 164/95
[2019-03-03 09:11] VITALS: BP 164/95
[2019-03-03] MEDS ORDERED: FENTANYL CITRATE/PF 100MCG/2 ML INJ ONE (12:18)
[2019-03-03] MEDS ORDERED: MIDAZOLAM HCL 2 MG/2 ML VIAL ONE (12:18)
[2019-03-03 12:39] VITALS: BP 169/95
[2019-03-03] MEDS ORDERED: POTASSIUM CHLORIDE 10MEQ EA PO ONE (14:45)
[2019-03-03] MEDS ORDERED: ONDANSETRON HCL 4 MG ORAL DISINTEGRATING TAB PO PRN (15:15)
[2019-03-04] MEDS ORDERED: PANTOPRAZOLE SOD 40 MG TABEC PO SCH (07:30)
== END 2019-03-03 15:05 | disposition home or self-care (01) | DRG 418 ==
LOC: ER 09:34 → ERHOLD 14:46 → IMCU 15:25 → OBSVTOIN 03-02 09:32 → MED/SURG 03-02 13:13
PROC: 0FT44ZZ Resection of Gallbladder, Percutaneous Endoscopic Approach (ICD-10-PCS; principal; 2019-03-01 08:00)
DX: K81.0 Acute cholecystitis (principal); E87.1 Hypo-osmolality and hyponatremia; M62.82 Rhabdomyolysis; K82.8 Other specified diseases of gallbladder; E87.6 Hypokalemia; E66.9 Obesity, unspecified; Z68.34 Body mass index [BMI] 34.0-34.9, adult; K76.0 Fatty (change of) liver, not elsewhere classified; E11.9 Type 2 diabetes mellitus without complications
CPT/HCPCS: 36415; 71045; 74177; 76705; 78227; 80053; 81001; 82150; 82550; 82553; 83605; 83690; 83735; 83880; 84484; 85025; 85610; 85730; 88304; 93005; 99284; A9537; C1766; G0378; J0360; J1100; J2001; J2250; J2270; J2405; J2550; J7030; J7042; Q9967

== ENCOUNTER → 2019-03-15 | Day surgery (SDC) | payer BC ==
[~2019-03-15] MED LIST: FENTANYL CITRATE/PF 100MCG/2 ML INJ ONE; HYOSCYAMINE SULFATE 0.5 MG/ML INJ ONE; LIDOCAINE HCL 2% LOCAL INJ 5 ML SDV VIAL INJ ONE; MIDAZOLAM HCL 2 MG/2 ML VIAL ONE; PROPOFOL IV EMULSION 10 MG/ML 50 ML VIAL ONE
[2019-03-15 10:29] VITALS: BP 132/96
--- NOTE | 2019-03-15 16:03 | Operative Report ---
DATE OF PROCEDURE: 03/15/2019 SURGEON: Jalil Cox MD PROCEDURE: An EGD with biopsies and colonoscopy with polypectomy and biopsies. INDICATIONS FOR EGD: Dyspepsia. INDICATIONS FOR COLONOSCOPY: Colorectal cancer screening. MEDICATIONS: The patient was done under MAC. Please see anesthesiologist's note. PROCEDURE IN DETAIL: With the patient in left lateral decubitus position, a flexible fiberoptic Olympus gastroscope was introduced into the esophagus under direct visualization without any difficulty. There was some patchy erythema noted in distal esophagus. The scope was then advanced with ease into the stomach. Mucosa overlying the antrum and the body revealed some patchy intense erythema and moderate edema and biopsies were obtained and sent to stain for H pylori. An approximately 8 mm submucosal nodule was noted in the antrum that was biopsied. The pylorus was intubated with ease and the scope was advanced to the second portion of the duodenum. The scope was then withdrawn slowly mucosa overlying the proximal second portion and duodenal bulb grossly appeared to be within normal limits. Biopsies were obtained to rule out sprue. The scope was then withdrawn back into the stomach and retroflexed and mucosa overlying the fundus and cardia appeared to be within normal limits. The scope was then straightened out, it was subsequently withdrawn. The patient tolerated the procedure well. IMPRESSION: 1. Distal esophagitis. 2. Gastritis, biopsied. Biopsies sent to stain for H pylori. 3. Submucosal nodule of antrum, biopsied. 4. Rule out sprue. PLAN: Follow up histology. Initiate Protonix 40 mg one p.o. q.a.m. before meals. The patient was then turned around after adequate lubrication of the anal canal. A flexible fiberoptic Olympus colonoscope was inserted into the rectum with ease and advanced all the way to the cecum. It was then withdrawn slowly. Mucosa overlying the cecum appeared to be within normal limits. One polyp was snared from the ascending colon. The transverse appeared to be within normal limits. One polyp was snared from the descending colon, and one polyp was hot biopsied from the sigmoid colon. The mucosa overlying the left colon primarily the distal descending and the sigmoid was featureless with erythema and low-grade to moderate edema and biopsies were obtained. Anastomosis was noted at 20 cm from the anal verge and was intact. One minute polyp was hot biopsied from the rectum. The scope was then retroflexed into the distal rectum and small internal hemorrhoids were noted none of which was actively bleeding. The scope was then straightened out, it was subsequently withdrawn. The patient tolerated the procedure well. IMPRESSION: 1. Ascending colon polyp, snared. 2. Descending colon polyp, snared. 3. Mild patchy left-sided colitis. 4. Sigmoid colon polyp hot biopsied. 5. Anastomosis a 20 cm from the anal verge, intact. 6. Rectal polyp, hot biopsied. 7. Internal hemorrhoids none actively bleeding. PLAN: Follow up histology. Initiate high-fiber, low-fat diet. Initiate high-fiber supplement. Start VSL #3 one p.o. daily. The patient may benefit from a followup colonoscopy in 3 years. Jalil Cox MD [facility] [place] [facility] [place] /[id number] cc: MD Martin Morgan MD
== END | disposition home or self-care (01) ==
LOC: OR 06:08
PROVIDERS: ATTEND Internal Medicine Gastroenterology
DX: K29.50 Unspecified chronic gastritis without bleeding (principal); D12.2 Benign neoplasm of ascending colon; D12.4 Benign neoplasm of descending colon; D12.5 Benign neoplasm of sigmoid colon; K62.1 Rectal polyp; K51.50 Left sided colitis without complications; K20.9 Esophagitis, unspecified; B96.81 Helicobacter pylori [H. pylori] as the cause of diseases classified elsewhere; K31.89 Other diseases of stomach and duodenum; Z98.0 Intestinal bypass and anastomosis status; K64.8 Other hemorrhoids; Z72.0 Tobacco use
CPT/HCPCS: 43239; 45380; 45384; 45385; J1980; J2001; J2250; J2704

== ENCOUNTER 2019-03-17 12:26 | Emergency (ER) | payer BC ==
[~2019-03-17] VITALS: Ht 167.6 cm; Wt 98.0 kg
[2019-03-17] MEDS ORDERED: ONDANSETRON HCL INJ 2MG/ML 2ML 2 MG/ML VIAL IV STA (12:53)
[2019-03-17] MEDS ORDERED: SODIUM CHLORIDE 0.9% 1000ML 1,000 ML IV STA (12:53)
[2019-03-17] MEDS ORDERED: MORPHINE SULFATE INJ 4 MG/ML INJ 1ML IV ONE (13:00)
[2019-03-17] MEDS ORDERED: DIATRIZOATE MEGL/DIATRIZOA SOD 30 ML BTL PO ONE (13:20)
[2019-03-17 13:37] LABS: BASOPHILS # (AUTO) 0.1 (0.0-0.1); BASOPHILS % 0.5 % (0.0-1.0); EOSINOPHILS # (AUTO) 0.1 (0.0-0.4); EOSINOPHILS % 0.7 % (0.0-6.0); HEMOGLOBIN 15.3 g/dL (14.0-18.0); LYMPHOCYTES # (AUTO) 1.4 (1.0-3.2); LYMPHOCYTES % 10.5 % (18.0-39.1); MEAN CORPUSCULAR HEMOGLOBIN 29.6 pg (28-32); MEAN CORPUSCULAR HGB CONC 35.6 g/dL (31-35); MEAN CORPUSCULAR VOLUME 83.2 fL (81-99); MONOCYTES # (AUTO) 0.7 (0.2-0.8); MONOCYTES % 5.2 % (4.4-11.3); NEUTROPHILS # (AUTO) 10.7 (2.1-6.9); NEUTROPHILS % 82.8 % (38.7-80.0); PLATELET COUNT 292 x10e3/uL (140-360); RED BLOOD COUNT 5.17 x10e6/uL (4.3-5.7); RED CELL DISTRIBUTION WIDTH 12.5 % (11.7-14.4)
[2019-03-17 13:57] LABS: ALANINE AMINOTRANSFERASE 34 IU/L (0-55); ALBUMIN/GLOBULIN RATIO 0.9 (0.8-2.0); ALKALINE PHOSPHATASE 99 IU/L (40-150); AMYLASE 39 U/L (25-125); ANION GAP 15.6 mmol/L (8-16); BLOOD UREA NITROGEN 18 mg/dL (7-26); BUN/CREATININE RATIO 17 (6-25); CALCIUM 10.1 mg/dL (8.4-10.2); CARBON DIOXIDE 22 mmol/L (22-29); CHLORIDE 104 mmol/L (98-107); CREATININE, SERUM 1.06 mg/dL (0.72-1.25); EST GLOMERULAR FILTRATION RATE > 60 ML/MIN (60-); GLUCOSE 110 mg/dL (74-118); LIPASE 24 U/L (8-78); POTASSIUM 3.6 mmol/L (3.5-5.1); SODIUM 138 mmol/L (136-145)
[2019-03-17] MEDS ORDERED: IOPAMIDOL 370 MG/ML 200 ML INFUS..BTL INJ ONE (14:30)
[2019-03-17] MEDS ORDERED: SODIUM CHLORIDE 0.9% 50ML 50 ML ONE (14:30)
--- NOTE | 2019-03-17 15:46 | Diagnostic Imaging Report ---
EXAM: CT Abdomen and Pelvis WITH contrast INDICATION: Abdominal pain status post colonoscopy. COMPARISON: Multiple prior CT Abdomen/Pelvis, most recently 02/27/2019. TECHNIQUE: Abdomen and pelvis were scanned utilizing a multidetector helical scanner from the lung base to the pubic symphysis after administration of IV contrast. Coronal and sagittal reformations were obtained. Routine protocol was performed. Scan was performed when during portal venous phase. IV CONTRAST: 100 cc of Isovue 370 ORAL CONTRAST: Gastrografin COMPLICATIONS: None RADIATION DOSE: Total DLP: 630.1 mGy*cm Dose modulation, iterative reconstruction, and/or weight based adjustment of the mA/kV was utilized to reduce the radiation dose to as low as reasonably achievable. FINDINGS: LINES and TUBES: None. LOWER THORAX: Patchy dependent atelectasis in the lingula. Scattered coronary atherosclerosis. HEPATOBILIARY: Diffuse mild hepatic steatosis. Subcentimeter right hepatic lobe hypodensities are too small to characterize, but likely represents cysts. No biliary ductal dilation. GALLBLADDER: Status post interval cholecystectomy. SPLEEN: No splenomegaly. Subcentimeter splenic hypodensities are too small to characterize. PANCREAS: No focal masses or ductal dilatation. ADRENALS: No adrenal nodules KIDNEYS/URETERS: Kidneys enhance symmetrically. No evidence of hydronephrosis, solid mass, or stone. GI TRACT: No evidence of wall thickening or distension. Appendix is normal. PELVIC ORGANS/BLADDER: Unremarkable. LYMPH NODES: No lymphadenopathy. VESSELS: There is mild atherosclerotic disease in the aorta and major arterial branches. PERITONEUM / RETROPERITONEUM: No free air or fluid. BONES AND SOFT TISSUES: No acute osseous abnormality. No suspicious lytic or blastic lesions. Bilateral fat-containing inguinal hernias. CONCLUSION: No acute CT findings in the abdomen or pelvis. Diffuse mild hepatic steatosis. Status post interval cholecystectomy. Signed by: Dr. Franc Suazo MD on 03/17/2019 3:43 PM
[2019-03-17 16:33] VITALS: BP 128/87
== END 2019-03-17 16:52 | disposition home or self-care (01) ==
LOC: ER 12:26
DX: R11.2 Nausea with vomiting, unspecified (principal); R19.7 Diarrhea, unspecified; R10.84 Generalized abdominal pain; K52.9 Noninfective gastroenteritis and colitis, unspecified
CPT/HCPCS: 36415; 74177; 80053; 82150; 83690; 85025; 99284; J2270; J2405; J7030; Q9967

== ENCOUNTER 2019-03-22 15:53 | Inpatient (IN) | payer BC ==
[~2019-03-22] VITALS: Ht 167.6 cm; Wt 93.9 kg
[2019-03-22 17:26] LABS: BASOPHILS # (AUTO) 0.1 (0.0-0.1); BASOPHILS % 0.7 % (0.0-1.0); EOSINOPHILS # (AUTO) 0.1 (0.0-0.4); EOSINOPHILS % 0.8 % (0.0-6.0); HEMATOCRIT 41.4 % (38.2-49.6); HEMOGLOBIN 14.6 g/dL (14.0-18.0); LYMPHOCYTES # (AUTO) 1.5 (1.0-3.2); MEAN CORPUSCULAR HGB CONC 35.3 g/dL (31-35); MEAN CORPUSCULAR VOLUME 82.3 fL (81-99); MONOCYTES # (AUTO) 0.5 (0.2-0.8); MONOCYTES % 4.9 % (4.4-11.3); NEUTROPHILS # (AUTO) 7.8 (2.1-6.9); NEUTROPHILS % 78.1 % (38.7-80.0); PLATELET COUNT 291 x10e3/uL (140-360); RED BLOOD COUNT 5.03 x10e6/uL (4.3-5.7)
[2019-03-22 17:28] LABS: BILIRUBIN,URINE NEGATIVE (NEGATIVE); CLARITY,URINE CLEAR (CLEAR); COLOR,URINE YELLOW (YELLOW); LEUKOCYTE ESTERASE ,URINE NEGATIVE (NEGATIVE); NITRITE,URINE NEGATIVE (NEGATIVE); PROTEIN,URINE DIPSTICK TRACE (NEGATIVE); URINE UROBILINOGEN 1 mg/dL (0.2 - 1)
[2019-03-22] MEDS ORDERED: MORPHINE SULFATE INJ 4 MG/ML INJ 1ML IV PRN ×3 (17:30→22:15)
[2019-03-22 17:31] LABS: KETONES,URINE 2+ (NEGATIVE)
[2019-03-22 17:34] LABS: INR 0.96; PROTHROMBIN TIME 13.3 seconds (11.9-14.5)
[2019-03-22 17:35] LABS: PARTIAL THROMBOPLASTIN TIME 33.3 seconds (23.8-35.5)
[2019-03-22] MEDS ORDERED: MORPHINE SULFATE INJ 4 MG/ML INJ 1ML ONE (17:42)
[2019-03-22] MEDS ORDERED: ONDANSETRON HCL INJ 2MG/ML 2ML 2 MG/ML VIAL ONE (17:42)
[2019-03-22 17:45] LABS: ALANINE AMINOTRANSFERASE 26 IU/L (0-55); ALBUMIN 4.1 g/dL (3.5-5.0); ALBUMIN/GLOBULIN RATIO 1.1 (0.8-2.0); ALKALINE PHOSPHATASE 100 IU/L (40-150); AMYLASE 145 U/L (25-125); BLOOD UREA NITROGEN 14 mg/dL (7-26); BUN/CREATININE RATIO 13 (6-25); CALCIUM 9.9 mg/dL (8.4-10.2); CARBON DIOXIDE 21 mmol/L (22-29); CHLORIDE 105 mmol/L (98-107); CREATINE KINASE 80 IU/L (30-200); CREATININE, SERUM 1.08 mg/dL (0.72-1.25); EST GLOMERULAR FILTRATION RATE > 60 ML/MIN (60-); GLUCOSE 109 mg/dL (74-118); LIPASE 29 U/L (8-78); SODIUM 138 mmol/L (136-145)
[2019-03-22 18:00] LABS: WBC,URINE (MAN) 0-5 /HPF (0-5)
[2019-03-22] MEDS ORDERED: ONDANSETRON HCL INJ 2MG/ML 2ML 2 MG/ML VIAL IV ONE (18:00)
[2019-03-22 18:01] LABS: MUCUS,URINE MODERATE (RARE)
[2019-03-22 18:02] LABS: RBC,URINE 0-5 /HPF (0-5)
[2019-03-22] MEDS ORDERED: DIATRIZOATE MEGL/DIATRIZOA SOD 30 ML BTL PO ONE (18:19)
[2019-03-22] MEDS ORDERED: SODIUM CHLORIDE 0.9% 1000ML 1,000 ML IV SCH (18:45)
--- NOTE | 2019-03-22 19:43 | Diagnostic Imaging Report ---
EXAMINATION: CT of the abdomen and pelvis with contrast. TECHNIQUE: Helical CT images of the abdomen and pelvis were performed from the lung bases to the lesser trochanters after the intravenous administration of 100 cc of Isovue 300 and the oral administration of gastro. Coronal and sagittal reformatted images were obtained.Dose modulation, iterative reconstruction, and/or weight based adjustment of the mA/kV was utilized to reduce the radiation dose to as low as reasonably achievable. COMPARISON: None. CLINICAL HISTORY:pain DISCUSSION: ABDOMEN/PELVIS: LOWER THORAX:Unremarkable. HEPATOBILIARY: No enhancing lesion. Subcentimeter hypodensity in the left hepatic lobe. No intra-or extrahepatic biliary ductal dilation. Cholecystectomy. SPLEEN: No splenomegaly. PANCREAS: No focal masses or ductal dilatation. ADRENALS: No adrenal nodules. KIDNEYS/URETERS: No hydronephrosis, stones, or solid mass lesions. PELVIC ORGANS/BLADDER: The bladder is normal. PERITONEUM/RETROPERITONEUM: No free air or fluid. LYMPH NODES: No intra-abdominal, retroperitoneal, pelvic or inguinal lymphadenopathy. VESSELS: Mild vascular calcifications. GI TRACT: No obstruction. Appendix normal. BONES AND SOFT TISSUE: No bony destructive lesions. No soft tissue abnormalities. IMPRESSION: No acute CT finding. Signed by: Dr. Stephen Kincaid M.D. on 03/22/2019 7:39 PM
[2019-03-22] MEDS ORDERED: DONNATAL/LIDOCAINE/MAALOX 30 ML SUSP PO STA (20:01)
[2019-03-22] MEDS ORDERED: MAGNESIUM/ALUMINUM/SIMETHICONE 30 ML UDC PO SCH (21:00)
[2019-03-22] MEDS ORDERED: LIDOCAINE VISC 2% SOLN 15 ML UDC PO SCH (21:00)
[2019-03-22] MEDS ORDERED: BELLADONNA ALK/PHENOBARBITAL 5 ML UDC PO SCH (21:00)
[2019-03-22] MEDS ORDERED: ONDANSETRON HCL INJ 2MG/ML 2ML 2 MG/ML VIAL IV PRN (21:45)
[2019-03-22] MEDS ORDERED: CLONIDINE HCL 0.1 MG TAB PO ONE (22:15)
--- NOTE | 2019-03-22 23:05 | NUR ---
DEJON INFORMED OF VITAL SIGNS, MAY TRANSFER TO FLOOR
[2019-03-22] MEDS ORDERED: HYDRALAZINE HCL 20 MG/ML VIAL IV PRN (23:15)
[2019-03-22] MEDS ORDERED: HYDRALAZINE HCL 20 MG/ML VIAL ONE (23:16)
--- NOTE | 2019-03-22 23:30 | NUR ---
RECEIVED REPORT FROM PARMINDER, DOC NURSE. CALL LIGHT WITHIN REACH. FAMILY MEMBER AT BEDSIDE. PATIENT CAME VIA WHEELCHAIR. A&OX3.
[2019-03-23] VITALS (7 sets, daily range): BP systolic 115–137; BP diastolic 71–87
--- NOTE | 2019-03-23 00:31 | NUR ---
received report, in to see patient for admission and assessment. at this time patient is in stable condition, reports epigastric pain of 2/10. aaox3, resp even and unlabored, fluids started to right ac 20g @125 per orders. bed locked and in lowest position, call light within reach. family member at bedside. will continue to monitor.
--- NOTE | 2019-03-23 01:13 | NUR ---
Dr. Cox ordered stat mra abd, not needed to be done right now, but needs to be done this morning. health and safety technician made aware.
[2019-03-23] MEDS: SODIUM CHLORIDE 0.9% 1000ML 1,000 ML IV SCH ×4 (01:26→22:41)
[2019-03-23 05:32] LABS: BASOPHILS % 0.5 % (0.0-1.0); EOSINOPHILS # (AUTO) 0.1 (0.0-0.4); EOSINOPHILS % 1.2 % (0.0-6.0); HEMATOCRIT 37.6 % (38.2-49.6); HEMOGLOBIN 12.8 g/dL (14.0-18.0); LYMPHOCYTES # (AUTO) 2.6 (1.0-3.2); LYMPHOCYTES % 30.1 % (18.0-39.1); MEAN CORPUSCULAR HEMOGLOBIN 28.7 pg (28-32); MEAN CORPUSCULAR VOLUME 84.3 fL (81-99); MONOCYTES # (AUTO) 0.5 (0.2-0.8); MONOCYTES % 5.8 % (4.4-11.3); NEUTROPHILS # (AUTO) 5.3 (2.1-6.9); NEUTROPHILS % 62.3 % (38.7-80.0); PLATELET COUNT 256 x10e3/uL (140-360); RED BLOOD COUNT 4.46 x10e6/uL (4.3-5.7); RED CELL DISTRIBUTION WIDTH 12.2 % (11.7-14.4)
[2019-03-23 05:51] LABS: ALANINE AMINOTRANSFERASE 19 IU/L (0-55); ALBUMIN 3.3 g/dL (3.5-5.0); ALBUMIN/GLOBULIN RATIO 1.1 (0.8-2.0); ALKALINE PHOSPHATASE 80 IU/L (40-150); ANION GAP 11.5 mmol/L (8-16); BLOOD UREA NITROGEN 9 mg/dL (7-26); BUN/CREATININE RATIO 11 (6-25); CALCIUM 8.6 mg/dL (8.4-10.2); CARBON DIOXIDE 23 mmol/L (22-29); CHLORIDE 106 mmol/L (98-107); EST GLOMERULAR FILTRATION RATE > 60 ML/MIN (60-); GLUCOSE 99 mg/dL (74-118); POTASSIUM 3.5 mmol/L (3.5-5.1); SODIUM 137 mmol/L (136-145)
[2019-03-23] MEDS ORDERED: IOPAMIDOL 370 MG/ML 200 ML INFUS..BTL INJ ONE (06:45)
[2019-03-23] MEDS ORDERED: SODIUM CHLORIDE 0.9% 50ML 50 ML ONE ×2 (06:45→08:47)
[2019-03-23] MEDS ORDERED: GADOBENATE DIMEGLUMINE 1 ML IV ONE (08:47)
--- NOTE | 2019-03-23 09:50 | NUR ---
patient off the unit for MRI, Radiology called and told that, radiology recomend CTA abdomen since they cant do MRA with contrast due to he had surgery in last 3 weeks and clips present. Paged Dr Teresa Cox
[2019-03-23] MEDS ORDERED: ACETAMINOPHEN 325 MG TAB PO PRN (13:30)
--- NOTE | 2019-03-23 14:59 | NUR ---
spoke to in regards to consult. MD was made aware of new consult and patient having had cholecystectomy 03/01/19 with . reviewed labs with MD. no new orders at this time.
[2019-03-23] MEDS ORDERED: ONDANSETRON HCL 4 MG ORAL DISINTEGRATING TAB PO PRN (15:30)
--- NOTE | 2019-03-23 16:14 | NUR ---
Nutrition Screen Note RD Recommendation for Physician: Advance diet as tolerated to GI soft Plan of Care: RD following, monitoring for tolerance and adequacy Nutrition reason for involvement: Nutrition Risk Trigger - MST Primary Diagnose(s): Abdominal pain, dehydration PMH: Diverticulitis, GERD, HTN Ht:66 in Wt:210lb BMI:33.9 kg/m2 IBW:142lb RD Assessment: (03/23/2019) Chart reviewed. Labs and meds reviewed. Initial encounter with patient. 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 Pt denies any difficulty chewing or swallowing nor has any N,V,D. No wt changes noted. Current Diet: Clear liquid Malnutrition Evaluation () The patient does not meet criteria for a specified degree of malnutrition at this time. Will re-evaluate at follow-up as appropriate. Diet Education Needs Assessment: Diet education not indicated. Nutrition Care Level: Low Signed: Jayesh Alva RD, LD, [facility]
--- NOTE | 2019-03-23 19:01 | NUR ---
received report from day nurse. patient is resting comfortably in bed. bed is in lowest position and call malik is within reach. will continue to monitor patient's care.
--- NOTE | 2019-03-23 19:10 | Consultation ---
DATE OF CONSULTATION: 03/23/2019 REASON FOR CONSULTATION: Abdominal pain. HISTORY OF PRESENT ILLNESS: The patient is a 53-year-old male admitted to the hospital because of upper abdominal pain that was severe, developed several days ago. The patient underwent approximately 3 weeks ago laparoscopic cholecystectomy for biliary dyskinesia and these appear to have improved or resolved the pain for approximately 2 weeks, but about a week ago, he began having a similar type of pain, which became more severe today. The pain is associated with ingestion of all foods and is described as a sensation of fullness. The patient after the laparoscopic cholecystectomy, underwent colonoscopy and an esophagogastroduodenoscopy, distal esophagitis was found. Biopsies were taken of the stomach for H. pylori and at this time they are pending. Colonoscopy revealed multiple colon polyps. The patient upon admission had a CT scan that was normal. His admission laboratories are all unremarkable except for hemoglobin of 12.8, hematocrit of 37. Admission liver chemistries are normal. Lipase is normal. Amylase is minimally elevated. PHYSICAL EXAMINATION: GENERAL: Reveals a 53-year-old male in no acute distress at this time. ABDOMEN: Reveals soft and nontender abdomen. The laparoscopic trocar sites are clean and healing well. ASSESSMENT: Abdominal pain, status post laparoscopic cholecystectomy for biliary dyskinesia with recurrence of the pain. At this point, unfortunately, the gastric biopsy that was sent on the 15 of March for H. pylori is not available. This patient could be certainly having H. pylori and gastritis. The other possibilities that he may be a case of the irritable bowel syndrome. I doubt that there is any type of retained stone since the patient's liver chemistries are normal and he had no stones on his gallbladder. I understand the MRI has been ordered and that is pending. At this point, I think that we need to find what the pathology report is for the gastric biopsies. If that is negative for Helicobacter, then he may need further GI workup. We will be on standby in case surgery is needed. Thank you very much for the courtesy of this consultation. MD JOHAN Briceño/DHRUV /[id number] [facility]
--- NOTE | 2019-03-23 20:31 | History and Physical ---
HISTORY OF PRESENT ILLNESS: A 53-year-old male with past medical history positive for recent cholecystectomy, recent colonoscopy, and EGD. The patient came apparently several times to the emergency room complaining of severe abdominal pain. CT of the abdomen was done, it was completely normal. Workup has been unremarkable. The patient is going to be seen by Dr. Deangelo Bullock, surgeon to rule out adhesions of the abdomen and Dr. Jalil Cox for Gastroenterology. REVIEW OF SYSTEMS: CARDIOVASCULAR: No chest pain or palpitation. RESPIRATORY: No shortness of breath. No cough. GASTROINTESTINAL: He had diarrhea, severe epigastric pain radiated to the left flank. No blood in the stools. No vomiting blood. No dysphagia. No vomiting. GENITOURINARY: No frequency. No dysuria. ALLERGIES: HE IS NOT ALLERGIC TO ANY MEDICATION. SOCIAL HISTORY: He does not smoke, does not drink. PHYSICAL EXAMINATION: HEART: Showed regular rhythm. Normal S1, S2 sound. LUNGS: Clear bilaterally. ABDOMEN: Soft, nontender. No distention. No visceromegaly. EXTREMITIES: Show no evidence of cyanosis or hematoma. VITAL SIGNS: Blood pressure 124/71, temperature 97.7 degrees Farenheit, heart rate 66 per minute, respiratory rate 16 per minute, O2 saturation 97%. LABORATORY DATA: On the CT of the abdomen, no significant abnormalities. On the CMP with sodium 137, potassium 3.5, chloride 106, carbon dioxide 23, BUN 9, creatinine 0.80, glucose 99, lactic acid 15.9, calcium 8.6. Total bilirubin 0.6, AST 14, ALT 19, alkaline phosphatase 80. Troponin 0.001. Total protein 6.4, albumin 3.3, globulin 3.1, amylase 145, lipase normal at 29. On the CBC, white blood count 8.48, hemoglobin 12.8, hematocrit 37.6, platelet count 256,000. An urinalyses showed some ketones and protein and moderate mucus noted in the nose. PT 13.3, INR 0.96, PTT 33.3. IMPRESSION: 1. Abdominal pain, status post cholecystectomy. 2. Acute diarrhea. 3. Obesity. PLAN OF TREATMENT: We are going to admit him to the hospital. Consult Dr. Jalil Cox for Gastroenterology and Dr. Deangelo Bullock for surgery. Continue normal saline at 125 mL an hour. Continue with belladonna , hydralazine 5 mg IV as needed for hypertension, at once, morphine 4 mg IV as needed for severe pain every 6 hours, Zofran 4 mg IV q.4 hours as needed for nausea. MD FALGUNI Gilbert/DHRUV /[id number]
[2019-03-24] VITALS (9 sets, daily range): BP systolic 122–173; BP diastolic 76–93
[2019-03-24 05:35] LABS: BASOPHILS # (AUTO) 0.1 (0.0-0.1); EOSINOPHILS # (AUTO) 0.2 (0.0-0.4); EOSINOPHILS % 2.9 % (0.0-6.0); HEMATOCRIT 36.7 % (38.2-49.6); HEMOGLOBIN 13.1 g/dL (14.0-18.0); LYMPHOCYTES # (AUTO) 2.3 (1.0-3.2); LYMPHOCYTES % 29.2 % (18.0-39.1); MEAN CORPUSCULAR HEMOGLOBIN 29.8 pg (28-32); MEAN CORPUSCULAR HGB CONC 35.7 g/dL (31-35); MEAN CORPUSCULAR VOLUME 83.4 fL (81-99); MONOCYTES # (AUTO) 0.6 (0.2-0.8); MONOCYTES % 7.1 % (4.4-11.3); NEUTROPHILS # (AUTO) 4.6 (2.1-6.9); NEUTROPHILS % 59.4 % (38.7-80.0); PLATELET COUNT 229 x10e3/uL (140-360); RED CELL DISTRIBUTION WIDTH 12.1 % (11.7-14.4)
[2019-03-24] MEDS: SODIUM CHLORIDE 0.9% 1000ML 1,000 ML IV SCH (05:45)
[2019-03-24 05:52] LABS: ALANINE AMINOTRANSFERASE 20 IU/L (0-55); ALKALINE PHOSPHATASE 75 IU/L (40-150); ANION GAP 8.8 mmol/L (8-16); BLOOD UREA NITROGEN 10 mg/dL (7-26); BUN/CREATININE RATIO 12 (6-25); CALCIUM 8.2 mg/dL (8.4-10.2); CARBON DIOXIDE 24 mmol/L (22-29); CHLORIDE 107 mmol/L (98-107); CREATININE, SERUM 0.81 mg/dL (0.72-1.25); EST GLOMERULAR FILTRATION RATE > 60 ML/MIN (60-); GLUCOSE 89 mg/dL (74-118); POTASSIUM 3.8 mmol/L (3.5-5.1); SODIUM 136 mmol/L (136-145)
[2019-03-24] MEDS ORDERED: DICYCLOMINE HCL 20 MG TAB PO SCH (06:00)
--- NOTE | 2019-03-24 07:00 | NUR ---
report given to day nurse. patient is resting in bed. bed is in lowest position and call malik is within reach.
[2019-03-24] MEDS: SUCRALFATE 1 GM TAB PO SCH ×5 (07:47→21:50)
[2019-03-24] MEDS: PANTOPRAZOLE 40 MG 10ML VIAL IV SCH ×2 (08:47→21:50)
[2019-03-24] MEDS ORDERED: PANTOPRAZOLE 40 MG 10ML VIAL IV SCH (09:00)
[2019-03-24] MEDS ORDERED: HYOSCYAMINE 0.125 MG TAB PO PRN (10:15)
[2019-03-24] MEDS: DICYCLOMINE HCL 20 MG TAB PO SCH ×2 (11:41→18:00)
[2019-03-24] MEDS ORDERED: HYDRALAZINE HCL 20 MG/ML VIAL IV PRN (12:30)
--- NOTE | 2019-03-24 12:30 | NUR ---
Dr. Milton Bullock at the bedside assessing patient left quadrant abdominal pain. MD on phone with Radiologist discussing the need for MRA.
[2019-03-24] MEDS ORDERED: HYDROMORPHONE 1MG/1ML INJ IV PRN (13:00)
[2019-03-24] MEDS ORDERED: LEVOFLOXACIN 500MG/D5W 100ML 100 ML IV SCH (13:15)
[2019-03-24] MEDS: HYDROMORPHONE 2MG/ML 2 MG/ML ML IV PRN ×2 (13:19→17:01)
--- NOTE | 2019-03-24 13:20 | NUR ---
Patient off unit to MRI for MRA of ABD/PELVIS. Patient and tech reminded to get up slowly to minimize dizziness after pain medication was given Both verbalized understanding.
[2019-03-24] MEDS ORDERED: SODIUM CHLORIDE 0.9% 50ML 50 ML ONE (13:21)
[2019-03-24] MEDS ORDERED: GADOBENATE DIMEGLUMINE IV ONE (13:21)
[2019-03-24] MEDS ORDERED: ONDANSETRON HCL INJ 2MG/ML 2ML 2 MG/ML VIAL IV PRN (14:00)
[2019-03-24] MEDS ORDERED: METRONIDAZOLE 500MG/NS 100ML 100 ML IV SCH (14:00)
--- NOTE | 2019-03-24 14:29 | Diagnostic Imaging Report ---
CARDIOVASCULAR MRI & MRA OF THE ABDOMEN and PELVIS Comparison: CT abdomen and pelvis 03/22/2019. 03/17/2019. 02/27/2019. 02/25/2019. Indication: Acute abdominal pain. Status post cholecystectomy. Pain is now radiating to the lower abdomen/pelvis. Technique: [employer] Sign[employer] excite 1.5 T MRI scanner. * T2 Haste imaging for anatomic definition. * Contrast-enhanced volume sets acquired for three-dimensional MRA reconstructions after injection of gadolinium-chelate (MultiHance, 40 cc). * For more optimal morphologic evaluation, off-line advanced post-processing of the 3-D data was performed (using multiplanar, [id number], and/or volume-rendered reconstructions). FINDINGS: ABDOMINAL AORTA: The abdominal aorta is normal in course, caliber and contour. There is no evidence for acute aortic pathology. The celiac artery demonstrates acute kinking and narrowing. On previous CTs, the celiac axis is smaller in caliber but did not demonstrate this kinking. SMA is widely patent. Renal arteries: bilateral single renal arteries are normal in caliber and widely patent. Mild atherosclerotic changes. No wall thickening identified. DANIEL is small but patent. The abdominal aorta measures: 2.5 cm at the supramesenteric segment 2.5 cm at the mesenteric segment 2.2 cm at the renal segment 2.3 cm at the mid infrarenal segment 2.5 cm at the aortic bifurcation. LOWER CHEST: Unremarkable. ABDOMEN: The liver, spleen, adrenal glands, and bilateral kidneys appear unremarkable. Gallbladder is surgically absent. BONES AND SOFT TISSUES: Unremarkable on limited evaluation. IMPRESSION: 1. Normal abdominal aorta. 2. Kinking of the small caliber celiac axis. On the comparison CT, the celiac axis is small in caliber but does not demonstrate the kinking. This raises concern for median arcuate ligament syndrome. Conventional angiogram is recommended if there is high clinical concern. Results were discussed with Dr. Bullock on 03/24/2019 at 2:20 PM. Signed by: Dr. Americo Rodriguez M.D. on 03/24/2019 2:26 PM
--- NOTE | 2019-03-24 16:28 | Progress Note ---
DATE: Internal Medicine Progress Note. SUBJECTIVE: Patient is a 53-year-old male, who came out of severe abdominal pain postprandial. CT of the abdomen showed no significant abnormality to explain the pain. He is going for an MRI of the abdomen. If that is negative, then Dr. Jalil Cox, conveyor system operator and Dr. Tavera, surgeon will decide about any other workup that can be necessary to explain the abdominal pain. OBJECTIVE: VITAL SIGNS: Blood pressure 173/87, temperature 97.5, heart rate 74 per minute, respiratory rate is 20 per minute, and oxygen saturation 100%. ABDOMEN: On physical exam abdomen is soft. He had tenderness on the epigastric and left lower quadrant area. No distention. No visceromegaly. EXTREMITIES: Show no evidence of cyanosis or hematoma. LABORATORY DATA: On a BMP; sodium 136, potassium 3.8, chloride 107, CO2 of 24, BUN 10, creatinine 0.81, and glucose 89. CBC; white blood count 7.71, hemoglobin 13.1, hematocrit 36.7, platelet count 229,000. PT 13.3, PTT 33.3, INR 0.96. AST 15, ALT 20, total bilirubin 0.7, alkaline phosphatase 95, and lipase is low at 29. IMPRESSION: 1. Abdominal pain. 2. Uncontrolled hypertension. 3. Obesity. 4. arthritis. PLAN OF TREATMENT: We are going to continue with empiric antibiotic which is Levaquin 500 mg daily, Flagyl 500 mg IV q.8 hours. Continue normal saline 125 mL an hour. Belladonna, alkaloid, and phenobarbital combination 10 mL as needed, Zofran 4 mg IV q.4 hours as needed, hyoscyamine 0.25 mg q.4 hours as needed. Continue with Protonix 40 mg twice a day, amlodipine 5 mg daily, Carafate 1 g before meals and at bedtime, hydralazine 10 mg IV push every 4 hours as needed for hypertension. He has been started on Norvasc 5 mg daily, Tylenol 325 mg q.4 hours as needed pain, hematocrit 20 mg q.6 hours, Dilaudid 1 mg IV q.3 hours as needed obesity. MD FALGUNI Gilbert/MODL /[id number]
--- NOTE | 2019-03-24 16:33 | Progress Note ---
DATE: Internal Medicine Progress Note Levaquin or Flagyl has been discontinued by the surgeon, Dr. Liang Bullock. He stated he has been started on Zosyn 3.375 g IV q.6 hours and Protonix is 40 mg IV twice a day. As I said, the MRI of the abdomen and pelvis has been ordered by Dr. Jalil Cox as part of the workup to find out and make sure he does not have any evidence of any celiac disease, celiac artery stenosis, or any mesenteric artery stenosis. If the workup is negative for any type of abdominal stenosis, then the patient will need further workup. ADDENDUM: MD FALGUNI Gilbert/DHRUV /[id number]
[2019-03-24] MEDS: AMLODIPINE BESYLATE 5 MG TAB PO SCH (18:03)
[2019-03-24] MEDS: PIPER-TAZ 3.375 GM 50 ML IV SCH (18:19)
--- NOTE | 2019-03-24 19:14 | NUR ---
REPORT GIVEN TO CIRCUS TRAINER NURSE. PT HAS NO COMPLAINTS. CALL LIGHT WITHIN REACH, BED LOCKED AND IN LOWEST POSITION, ROOM FREE FROM CLUTTER. FAMILY AT BEDSIDE
--- NOTE | 2019-03-24 20:50 | NUR ---
PATIENT CONDITION STABLE WITHOUT DISTRESS, HE DENIES ABDOMINAL PAIN. FAMILY MEMBERS VISITING WITH THE PATIENT, HE'S INSTRUCTED TO CALL FOR ASSISTANCE NEEDED.
[2019-03-25] VITALS (7 sets, daily range): BP systolic 118–134; BP diastolic 73–86
[2019-03-25] MEDS: DICYCLOMINE HCL 20 MG TAB PO SCH ×5 (00:19→23:27)
[2019-03-25] MEDS: PIPER-TAZ 3.375 GM 50 ML IV SCH ×5 (00:19→23:27)
--- NOTE | 2019-03-25 00:22 | NUR ---
DR Fatou BORDEN WAS ON THE UNIT AND ASSESSED THE PATIENT, NO NEW ORDERS RECEIVED.
--- NOTE | 2019-03-25 03:15 | NUR ---
PATIENT IS SOUNDLY ASLEEP, HE'S EASY TO AROUSE. HE DENIES ABDOMINAL PAIN AT THIS TIME, CALL LIGHT WITHIN EASY REACH.
[2019-03-25] MEDS: SUCRALFATE 1 GM TAB PO SCH ×4 (07:58→20:22)
[2019-03-25] MEDS: AMLODIPINE BESYLATE 5 MG TAB PO SCH (08:30)
[2019-03-25] MEDS: PANTOPRAZOLE 40 MG 10ML VIAL IV SCH (08:30)
--- NOTE | 2019-03-25 18:04 | Progress Note ---
DATE: Internal Medicine Progress Note SUBJECTIVE: The patient is complaining of postprandial abdominal pain, epigastric pain was precisely. He had an MRI of the abdomen, which showed kinking of the celiac artery, which might be the reason why he is having abdominal pain. The patient is going to have a CT angiogram of the celiac artery and intraabdominal arteries to rule out any celiac artery stenosis, which may be secondary to the ligament compressing the celiac artery. If that is the case, we need to have Dr. Liang Bullock, surgeon, do an evaluation for removal of the ligament that is pressing on the celiac artery. The patient already had abdominal ultrasound, which was reported by Invasive Radiology to be done before the procedure. PHYSICAL EXAMINATION: VITAL SIGNS: Blood pressure 124/80, temperature 37.6, heart rate 76 per minute, respiratory rate 18 per minute, oxygen saturation 99%. HEART: Showed regular rhythm. Normal S1, S2 sound. LUNGS: Clear bilaterally. ABDOMEN: Soft. LABORATORY DATA: On the BMP; sodium 136, potassium 3.8, chloride 107, CO2 24, BUN 10, creatinine 0.81, glucose 89. CBC; white count 7.71, hemoglobin 13.1, hematocrit 36.7, platelet count 229,000. PT 13.3, INR 0.96, PTT 33.3. AST 16, ALT 20, total bilirubin 0.7, alkaline phosphatase 75. FINAL IMPRESSION: 1. 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 2. Gastritis. 3. Hypertension. PLAN OF TREATMENT: Continue Zosyn 3.375 g IV q.6 hours, Tylenol 325 mg q.4 hours as needed, Zofran 4 mg IV q.4 hours as needed for nausea and vomiting, Carafate 1 g before meals and at bedtime, hydralazine 10 mg IV q.4 hours as needed for hypertension, Bentyl 20 mg q.6 hours for pain, Protonix 40 mg twice a day, hyoscyamine 0.25 mg q.4 hours, Dilaudid 1 mg IV q.3 hours as needed, amlodipine 5 mg daily for hypertension. As I said, we are going to complete the workup and elicit the reason for celiac artery stenosis produced by ligament and might need surgical intervention. MD FALGUNI Gilbert/DHRUV /[id number]
[2019-03-25] MEDS ORDERED: IOPAMIDOL 370 MG/ML 200 ML INFUS..BTL INJ ONE (19:01)
[2019-03-25] MEDS ORDERED: SODIUM CHLORIDE 0.9% 50ML 50 ML ONE (19:01)
--- NOTE | 2019-03-25 19:24 | Diagnostic Imaging Report ---
EXAM: CTA OF THE ABDOMINAL AORTA INDICATION: ^kinking of celiac artery,abdominal pain ^[id number] ^[id number] COMPARISON: None. TECHNIQUE: Multi-detector CT technology was employed. CTA of the abdomen was performed after the administration of IV contrast. IV CONTRAST: 150 mL of Omnipaque 350 ORAL CONTRAST: None COMPLICATIONS: None RADIATION DOSE: Total DLP: ... mGy*cm Estimated effective dose: (DLP x 0.015 x size factor) mSv CTDIvol has been reviewed. It is below the limits set by the Radiation Protocol Committee (RPC). For optimization of anatomic evaluation, multiplanar reconstruction, maximum intensity projections, and advanced 3-D off-line postprocessing were performed on a dedicated stand-alone workstation under the direct supervision of the interpreting physician. FINDINGS: Potential study limitations: None. VASCULAR WITH ADVANCED 3-D OFF-LINE POSTPROCESSING: The abdominal aorta is normal in course, caliber, and contour. There is no acute aortic pathology . Aortic plaques: Mild noncalcified protruding plaque within the infrarenal abdominal aorta without significant stenosis. The abdominal aorta measures: 2.3 cm at the supramesenteric segment 2.2 cm at the mesenteric segment 2.2 cm at the renal segment 2.1 cm at the mid infrarenal segment 2.0 cm at the aortic bifurcation. The celiac axis, SMA, and DANIEL are patent. However, there is minimal indentation of the proximal celiac trunk by an asymmetric right chanell of the diaphragm. The right chanell of the diaphragm measure 1.3 cm, while the left measures 0.5 cm. There are dual renal arteries bilaterally, both of which appear patent. The visualized proximal common iliac arteries are normal in caliber and widely patent. LOWER CHEST: Unremarkable. ABDOMEN: The liver, spleen, and pancreas appear normal. Cholecystectomy. The adrenal glands appear normal. Both kidneys are normal in size, shape, and density. There is no abnormal mass or hydronephrosis. There is no significant retroperitoneal adenopathy. No free fluid or free air within the abdomen. The visualized bowel appears unremarkable. The appendix is normal in size and contains hyperdense material. BONES: Mild degenerative changes of the lumbar spine. IMPRESSION: 1. Normal abdominal aorta. No acute abdominal aortic pathology. 2. 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 Noted that these images are taken during inspiration and narrowing can be worse during expiration. Recommend repeat CTA of the abdomen with expiratory phase, a more sensitive study rather than conventional angiogram. Arterial Doppler ultrasound of the celiac trunk was also obtained, however, measurements are not reliable due to difficulty to place the transducer in the same location during inspiration and expiration. 3. Widely patent SMA. Signed by: Dr. Shelley Umaña M.D. on 03/25/2019 7:21 PM
[2019-03-25] MEDS: PANTOPRAZOLE SOD 40 MG TABEC PO SCH (20:23)
[2019-03-25] MEDS ORDERED: SODIUM CHLORIDE 0.9% 250ML 250 ML ONE (20:27)
[2019-03-26] VITALS (9 sets, daily range): BP systolic 116–132; BP diastolic 68–82
[2019-03-26] MEDS ORDERED: SODIUM CHLORIDE 0.9% 250ML 250 ML IV STA (00:53)
[2019-03-26] MEDS: SODIUM CHLORIDE 0.9% 1000ML 1,000 ML IV SCH ×3 (01:03→22:57)
[2019-03-26] MEDS: PIPER-TAZ 3.375 GM 50 ML IV SCH ×4 (05:14→23:56)
[2019-03-26] MEDS: DICYCLOMINE HCL 20 MG TAB PO SCH ×4 (05:14→23:56)
[2019-03-26 06:13] LABS: ANION GAP 10.1 mmol/L (8-16); BLOOD UREA NITROGEN 15 mg/dL (7-26); BUN/CREATININE RATIO 16 (6-25); CALCIUM 8.6 mg/dL (8.4-10.2); CARBON DIOXIDE 25 mmol/L (22-29); CHLORIDE 102 mmol/L (98-107); CREATININE, SERUM 0.92 mg/dL (0.72-1.25); EST GLOMERULAR FILTRATION RATE > 60 ML/MIN (60-); GLUCOSE 87 mg/dL (74-118); POTASSIUM 3.1 mmol/L (3.5-5.1); SODIUM 134 mmol/L (136-145)
[2019-03-26] MEDS: SUCRALFATE 1 GM TAB PO SCH ×4 (08:07→20:06)
[2019-03-26] MEDS: PANTOPRAZOLE SOD 40 MG TABEC PO SCH ×2 (08:07→20:06)
[2019-03-26] MEDS: AMLODIPINE BESYLATE 5 MG TAB PO SCH (08:07)
--- NOTE | 2019-03-26 08:22 | Diagnostic Imaging Report ---
EXAM: CTA OF THE ABDOMINAL AORTA INDICATION: With expiratory phase. Concern for median arcuate ligament syndrome. COMPARISON: CTA of the abdomen in inspiratory phase 03/25/2019 TECHNIQUE: Multi-detector CT technology was employed. CTA of the abdomen was performed after the administration of IV contrast. Imaging was performed in EXPIRATORY phase IV CONTRAST: 100 mL of Isovue-370 ORAL CONTRAST: None COMPLICATIONS: Non For optimization of anatomic evaluation, multiplanar reconstruction, maximum intensity projections, and advanced 3-D off-line postprocessing were performed on a dedicated stand-alone workstation under the direct supervision of the interpreting physician. FINDINGS: Potential study limitations: None. VASCULAR WITH ADVANCED 3-D OFF-LINE POSTPROCESSING: The abdominal aorta is nonaneurysmal and normal in course, caliber, and contour. There is no acute aortic pathology . Aortic plaques: Mild noncalcified protruding plaque within the infrarenal abdominal aorta without significant stenosis. The celiac axis, SMA, and DANIEL are patent. Asymmetry with thickening of the right hemidiaphragmatic chanell is again noted. On sagittal images, there is moderate stenosis of the proximal celiac axis. The stenotic segment measures 2.6 mm in diameter, and the poststenotic segment measures 6.4 mm in diameter (approximately 60% stenosis). There are dual renal arteries bilaterally, both of which appear patent. The visualized proximal common iliac arteries are normal in caliber and widely patent. LOWER CHEST: Subsegmental atelectasis in the dependent lower lobes.. ABDOMEN: The liver, spleen, and pancreas appear normal. Cholecystectomy. The common hepatic artery is replaced to the superior mesenteric artery. The adrenal glands appear normal. Both kidneys are normal in size, shape, and density. There is no abnormal mass or hydronephrosis. There is no significant retroperitoneal adenopathy. No free fluid or free air within the abdomen. The visualized bowel appears unremarkable. The appendix is normal in size and contains hyperdense material. BONES: Degenerative disc changes and facet arthropathy predominantly affecting the lower lumbar spine. No osseous destructive lesions. IMPRESSION: 1. Minimal atherosclerotic vascular disease of the abdominal aorta without aneurysmal dilatation. 2. Moderate (approximately 60%) expiratory phase stenosis of the proximal celiac axis secondary to asymmetric right hemidiaphragmatic chanell is consistent with median arcuate ligament syndrome. 3. Widely patent superior mesenteric artery with replaced common hepatic artery. Signed by: Dr. Mejia Regan M.D. on 03/26/2019 8:19 AM
[2019-03-26] MEDS ORDERED: SODIUM CHLORIDE 0.9% 100 ML 100 ML ONE (09:08)
[2019-03-26] MEDS ORDERED: IOPAMIDOL 370 MG/ML 200 ML INFUS..BTL INJ ONE (09:08)
--- NOTE | 2019-03-26 09:58 | Diagnostic Imaging Report ---
Limited mesenteric vascular ultrasound Technique: Grayscale images of the abdomen were performed with special attention to the abdominal aorta and celiac trunk. Doppler interrogation was performed. COMPARISON: MRA Abdomen 03/24/2019, CT Abdomen/Pelvis 03/22/2019. FINDINGS: The aortic diameter is unremarkable, measuring 2 cm in the midportion. The aortic waveforms are unremarkable. The aortic peak systolic velocities range from 52-63 cm/s. The proximal celiac artery and superior mesenteric arteries are patent. The peak systolic velocities at the proximal celiac artery during inspiration range from 170-236 cm/s and during expiration range from 129-235 cm/s, and during free breathing measure 51.8 cm/s. However, the velocities are felt to be unreliable due to motion artifact and difficulty to place the transducer in a consistent location during inspiration and expiration. IMPRESSION: Patent celiac artery and SMA origin as above. Possible elevated inspiratory and expiratory velocities at the proximal celiac artery could indicated stenosis, however the velocities are felt to be unreliable due to motion artifact. A dedicated inspiratory and expiratory phase CTA is recommended to evaluate for median arcuate ligament syndrome. Signed by: Dr. Franc Suazo MD on 03/26/2019 9:54 AM
[2019-03-26] MEDS ORDERED: POTASSIUM CHLORIDE 20 MEQ TAB CR PO STA (13:29)
--- NOTE | 2019-03-26 16:10 | Progress Note ---
DATE: Internal Medicine Progress Note SUBJECTIVE: The patient is feeling better today. OBJECTIVE: VITAL SIGNS: Blood pressure 132/82, temperature 97.7, heart rate 72 per minute, respiratory rate 20 per minute, and oxygen saturation 96%. HEART: Showed regular rhythm. No murmur or added heart sound. LUNGS: Clear bilaterally. ABDOMEN: Soft, nontender. No distention. No visceromegaly. LABORATORY DATA: On a BMP; sodium 134, potassium 3.1, chloride 102, CO2 25, BUN 15, creatinine 0.82, glucose 87. On the CBC; white blood count 7.71, hemoglobin 13.1, hematocrit 36.7, and platelet count 229,000. PT 13.3, INR 0.96, and PTT 33.3. AST 15, ALT 20, total bilirubin 0.7, alkaline phosphatase 75. IMPRESSION: 1. Postprandial abdominal pain secondary to the ligament that is compressing the celiac artery on expiration by 60%. 2. Status post cholecystectomy. 3. Hypertension. 4. Obesity. PLAN OF TREATMENT: Dr. Liang Bullock of Surgery is going to talk with the cardiovascular surgeon to see if he can repair that ligament that is compressing the celiac artery. Continue Zosyn. Continue on normal saline. Continue on amlodipine 5 mg daily, Zofran 4 mg IV q.4 hours as needed, Carafate 1 g before meals, hydralazine 10 mg IV q.4 hours as needed, Bentyl 20 mg q.6 hours as needed, Protonix 40 mg twice a day, hyoscyamine 0.25 mg q.4 hours, and Dilaudid 1 mg IV q.3 hours as needed. MD FALGUNI Gilbert/DHRUV /[id number]
--- NOTE | 2019-03-26 16:56 | NUR ---
Nutrition Screen Note RD Recommendation for Physician: -Advance diet as tolerated to GI soft Plan of Care: RD following, monitoring for tolerance and adequacy Nutrition reason for involvement: Follow up Primary Diagnose(s): Postprandial abdominal pain secondary to the ligament that is compressing the celiac artery on expiration by 60%. PMH: Diverticulitis, GERD, HTN Ht:66 in Wt:210lb; 207.2lb BMI:33.9 kg/m2 IBW:142lb RD Assessment: (03/26/2019) Visited pt in the room. Diet has been advanced to full liquid. Pt tolerated diet well without any nausea or vomiting. Pt reported feeling better today without any abdominal pain. LBM 03/26. Will continue to monitor and follow. (03/23/2019) Chart reviewed. Labs and meds reviewed. Initial encounter with patient. 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 Pt denies any difficulty chewing or swallowing nor has any N,V,D. No wt changes noted. Current Diet: Full liquid Malnutrition Evaluation (03/23/2019) The patient does not meet criteria for a specified degree of malnutrition at this time. Will re-evaluate at follow-up as appropriate. Diet Education Needs Assessment: Diet education not indicated. Nutrition Care Level: Low Signed: Ashley Powers, MS, RD, LD
--- NOTE | 2019-03-26 19:00 | NUR ---
received report from day nurse. patient is resting comfortably in bed. denies pain or discomfort. bed is in lowest position and call malik is within reach. will continue to monitor patient's care.
[2019-03-27] VITALS (7 sets, daily range): BP systolic 121–155; BP diastolic 71–84
[2019-03-27] MEDS: PIPER-TAZ 3.375 GM 50 ML IV SCH ×3 (05:18→17:18)
[2019-03-27] MEDS: DICYCLOMINE HCL 20 MG TAB PO SCH ×3 (05:18→17:18)
--- NOTE | 2019-03-27 06:43 | NUR ---
report given to day nurse. patient is resting comfortably in bed. bed is in lowest position and call amlik is within reach.
[2019-03-27 08:02] LABS: ANION GAP 10.2 mmol/L (8-16); BLOOD UREA NITROGEN 7 mg/dL (7-26); BUN/CREATININE RATIO 8 (6-25); CALCIUM 8.8 mg/dL (8.4-10.2); CARBON DIOXIDE 26 mmol/L (22-29); CHLORIDE 103 mmol/L (98-107); CREATININE, SERUM 0.89 mg/dL (0.72-1.25); EST GLOMERULAR FILTRATION RATE > 60 ML/MIN (60-); GLUCOSE 90 mg/dL (74-118); POTASSIUM 4.2 mmol/L (3.5-5.1); SODIUM 135 mmol/L (136-145)
[2019-03-27] MEDS: SODIUM CHLORIDE 0.9% 1000ML 1,000 ML IV SCH (09:08)
[2019-03-27] MEDS: SUCRALFATE 1 GM TAB PO SCH ×4 (09:09→21:05)
[2019-03-27] MEDS: AMLODIPINE BESYLATE 5 MG TAB PO SCH (09:10)
[2019-03-27] MEDS: PANTOPRAZOLE SOD 40 MG TABEC PO SCH ×2 (09:10→21:05)
--- NOTE | 2019-03-27 15:37 | NUR ---
DR. BENZ'S NURSE, CHARANJIT CALLED AND STATED THAT DR. BENZ IS UNAVAILABLE UNTIL THE March, NOTIFIED DR. WEISS.
--- NOTE | 2019-03-27 15:45 | NUR ---
SPOKE WITH [employer] FOR BAMBI CEE FOR NEW CONSULT REGARDING COMPRESSED CELIAC ARTERY.
--- NOTE | 2019-03-27 16:55 | Progress Note ---
DATE: Internal Medicine Progress Note SUBJECTIVE: The patient is doing well. Still waiting for the opinion from a vascular surgeon at [facility] to resolve the issue with the ligament compressing the celiac artery that it producing his pain in the abdomen. We are going to consult Dr. Nicola Munoz, vascular surgeon to see that can be done. PHYSICAL EXAMINATION: VITAL SIGNS: Blood pressure 121/78, temperature , heart rate 78 per minute, respiratory rate 18 per minute, O2 saturation 95%. HEART: Showed regular rhythm. Normal S1, S2 sound. LUNGS: Clear bilaterally. ABDOMEN: Soft. LABORATORY DATA: On the BMP; sodium 135, potassium 4.2, chloride 103, CO2 26, BUN 7, creatinine 0.80, glucose 99. CBC; white count 7.71, hemoglobin 13.1, hematocrit 36.7, platelet count 229,000. PT 13.3, INR 0.96, PTT 33.3. AST 15, ALT 20, total bilirubin 0.7, alkaline phosphatase 75. IMPRESSION: 1. Celiac artery stenosis. 2. Abdominal pain. 3. Hypertension. PLAN OF TREATMENT: We are going to discontinue the IV antibiotic because there is no reason for that. Continue amlodipine 5 mg daily, Carafate 1 g before meals and at bedtime, Zofran 4 mg IV q.4 hours as needed, hydralazine 10 mg IV q.4 hours as needed for hypertension, Bentyl 20 mg q.6 hours as needed, Protonix 40 mg twice a day, hyoscyamine 0.25 mg q.4 hours, Dilaudid 1 mg IV q.3 hours as needed. As I said, we are going to consult the vascular surgeon to see MD FALGUNI Gilbert/DHRUV /[id number]
--- NOTE | 2019-03-27 19:31 | NUR ---
received report from day nurse. patient is resting comfortably in bed. bed is in lowest position and call malik is within reach. denies pain or discomfort. will continue to monitor patient.
--- NOTE | 2019-03-27 21:15 | NUR ---
RECEIVED PATIENT FROM OBS VIA WHEELCHAIR. PATIENT A&OX3, NO PAIN REPORTED AT THIS TIME, NO S&S OF DISTRESS. R AC 20G INFUSING NS AT 100ML/HR. ASYMPTOMATIC, INTACT, AND PATENT. LUNG SOUNDS CLEAR, BOWEL SOUNDS ACTIVE. PATIENT REPORTS HAVING A BOWEL MOVEMENT EARLIER TODAY. SKIN INTACT. NO EDEMA NOTED. ANTI-SKID SOCKS ON, PATIENT REMINDED TO CALL IF NEEDED ASSISTANCE OR WANTED TO GET OUT OF BED. BED LOCKED IN LOWEST POSITION. SIDE RAILS UP X2. CALL LIGHT IN REACH.
[2019-03-28 00:17] VITALS: BP 125/71
[2019-03-28] MEDS: PIPER-TAZ 3.375 GM 50 ML IV SCH ×3 (00:47→12:38)
[2019-03-28] MEDS: DICYCLOMINE HCL 20 MG TAB PO SCH ×4 (00:47→17:30)
--- NOTE | 2019-03-28 02:32 | Consultation ---
DATE OF CONSULTATION: 03/27/2019 REASON FOR CONSULT: Abdominal pain; requested by Dr. Ankur Escalera. HISTORY OF PRESENT ILLNESS: I saw and evaluated this patient on March 27, 2019. He is a 53-year-old man with a history of recent cholecystectomy for abdominal pain as well as colonoscopy, EGD, and possible diagnosis of celiac axis compression. He was having abdominal pain several weeks ago that increased in severity. Cholecystectomy was performed uneventfully. After the cholecystectomy, the pain resolved, but then pain about 10 to 15 minutes after solid food developed. This was different from the pain that he was having prior to the cholecystectomy. The pain is persisted. He came to the emergency room and was evaluated. Dr. Bullock saw him for the possibility of adhesions after cholecystectomy. A recent colonoscopy had been unremarkable, although the patient has a history of diverticulitis. He had a previous operation for diverticulitis with an incision in the lower abdomen. The patient denies any chcf history of abdominal pain. He is somewhat stocky and not thin. No fevers or chills. PAST MEDICAL HISTORY: Positive for diverticulitis and cholecystectomy. ALLERGIES: NONE KNOWN. SOCIAL HISTORY: Negative for smoking, alcohol, or IV drugs. He has a large supportive family and several of them are in the room with him. FAMILY HISTORY: Negative for early coronary artery disease. MEDICATIONS: See EMR. REVIEW OF SYSTEMS: GENERAL: Negative for fatigue and malaise. NEUROLOGIC: Negative for focal weakness. EXTREMITIES: Has dysarthria. HEENT: Negative for decreased vision or decreased hearing. CARDIAC: Negative for chest pain and palpitations. PULMONARY: Negative for shortness of breath or wheezing. GI: Positive as above. : Negative for hematuria or dysuria. ENDOCRINE: Negative for polyuria or polydipsia. VASCULAR: Negative for claudication or stroke. HEMATOLOGIC: Negative for clotting or bleeding. INFECTIOUS: Negative for fevers or sweating. PSYCHIATRIC: Negative for depression or anxiety. PHYSICAL EXAMINATION: GENERAL: Well-developed and well-nourished man, who is somewhat stocky, sitting up in bed, multiple family members are at the bedside. VITAL SIGNS: Blood pressure 135/75, pulse 80 and regular, respirations 16 and unlabored. NECK: Supple and nontender. No JVD. CARDIAC: Shows a regular rate and rhythm. There is a normal S1 and S2. There is no S3, S4, rub, or murmur. LUNGS: Clear to auscultation and percussion bilaterally. ABDOMEN: Globoid, benign. Good bowel sounds. No hepatosplenomegaly. There are well-healed scars from his laparoscopic cholecystectomy. There is a well-healed lower midline scar from an operation for diverticulitis 7 years ago. BACK: No CVA tenderness. No muscular spasm. EXTREMITIES: No cyanosis, clubbing, or edema. VASCULAR: Carotids 2+/2+ bilaterally, radials and femorals 1+/2+ bilaterally. There are no audible bruits in the abdomen. SKIN: No rashes or nonhealing ulcers. MUSCULOSKELETAL: Full range of motion at all joints. No evidence of joint swelling. NEUROLOGIC: Cranial nerves II through XII intact. Sensation intact to light touch and pinprick bilaterally. Strength 5/5 in all extremities. LYMPHATICS: Negative for cervical, clavicular, or femoral adenopathy. IMAGING: CT scan of the abdomen with dynamic view reportedly demonstrates possible stenosis of the celiac axis, but these images are not available for review this evening. IMPRESSION: Possible celiac axis stenosis, however, the patient with this syndrome are often thin and the pain is chronic. We will discuss this with his other physicians. Thank you very much for asking me to see this nice man. MD LUCRECIA GrimaldoL/MODL /[id number]
[2019-03-28] MEDS: SODIUM CHLORIDE 0.9% 1000ML 1,000 ML IV SCH ×3 (03:00→13:00)
[2019-03-28 04:33] VITALS: BP 120/75
--- NOTE | 2019-03-28 07:18 | NUR ---
PT RESTING IN BED AA0X3. PT IS MONGOLIAN SPEAKING PT IS IN NO S.S OF DISTRESS, DENIES ANY ABD PAIN PT IS ON FULL LIQUID, TOLERATING WELL LMB REPORTED TODAY LIQUID YELLOW PT HAS IV FLUIDS WITH NS AT 100CC.HR TO THE LEFT AC 20 WILL CONTINUE TO MONITOR PT CLOSELY SIDE RAILX2, BED WHEELS LOCKED CALL LIGHT IS WITHIN EASY REACH, INSTRUCTED TO CALL FOR ASSISTANCE IF NEEDED
[2019-03-28 08:42] VITALS: BP 130/84
[2019-03-28 09:30] VITALS: BP 130/84
[2019-03-28] MEDS: SUCRALFATE 1 GM TAB PO SCH ×3 (09:36→17:30)
[2019-03-28] MEDS: PANTOPRAZOLE SOD 40 MG TABEC PO SCH (09:36)
[2019-03-28] MEDS: AMLODIPINE BESYLATE 5 MG TAB PO SCH (09:36)
[2019-03-28 12:13] VITALS: BP 137/79
[2019-03-28 15:45] VITALS: BP 135/88
[2019-03-28] MEDS ORDERED: NORVASC5 MG PO (16:59)
[2019-03-28] MEDS ORDERED: PANTOPRAZOLE SO40 MG PO (16:59)
[2019-03-28] MEDS ORDERED: DICYCLOMINE HCL20 MG PO (17:01)
--- NOTE | 2019-03-28 17:05 | NUR ---
MD WEISS ROUNDED AND HAS DC PT. STATES HE LEFT MD WILKINSON A MESSAGE REGARDING FOLLOW UP VISIT FOR POSSIBLE SX SPOKE WITH MD Teresa BORDEN AND STATES PT CAN ALSO BE DC HOME WILL GET DC INFORMATION TO PT AT THIS TIME
--- NOTE | 2019-03-28 17:43 | NUR ---
DISCHARGE INSTRUCTIONS AND PRESCRIPTIONS. PT VERBALIZED UNDERSTANDING. AWARE HE NEEDS TO MAKE FOLLOW UP APPOINTMENTS IV DC PRESSURE DRESSING APPLIED AND TAPED. PT IS NOW OF UNIT TO HOME
--- NOTE | 2019-03-29 15:45 | Discharge Summary ---
HOSPITAL COURSE: He is a 53-year-old male, who had a past medical history positive for cholecystectomy and recently EGD, which showed gastritis. He came here again with abdominal pain. CT angiogram of the abdomen with expiration was showing a 60% stenosis of the celiac artery produced by a possible ligament overlying the celiac artery in the abdomen. The patient was seen by Dr. Pierce, vascular surgeon, his opinion was that the pain is very atypical for celiac artery compression and we are going to refer the patient to him. He is going home and he is going to follow up with Dr. Pierce as an outpatient. We think strongly that the postprandial abdominal pain that he has is due to the celiac artery stenosis, but right now he is stable enough to go home and follow up with Dr. Pierce. PHYSICAL EXAMINATION: HEART: Showed regular rhythm. Normal S1, S2 sound. LUNGS: Clear bilaterally. ABDOMEN: Soft. EXTREMITIES: Show no evidence of cyanosis, edema, or trauma. VITAL SIGNS: Blood pressure is 135/88, temperature 97.0, heart rate 85 per minute, respiratory rate 20 per minute, and oxygen saturation 99%. LABORATORY STUDIES: BMP shows sodium 135, potassium 4.2, chloride 103, CO2 of 26, BUN 7, creatinine 0.89, glucose 92. CBC; white blood count 7.71, hemoglobin 13.1, hematocrit 36.7, platelet count 229,000. PT 13.3, PTT 33.3, INR 0.96. AST 15, ALT 20, total bilirubin 0.7, alkaline phosphatase 75. So far the impression is celiac artery stenosis in expiratory phase secondary to asymmetric right hemidiaphragmatic chanell consistent with median acute ligament syndrome. Widely patent superior mesenteric artery will replace common hepatic artery. Blood culture and urine culture were negative. The patient going home. He is going to be discharged on Norvasc 5 mg daily, Protonix 40 mg twice a day, and also Bentyl 20 mg q.6 hours as needed for abdominal pain. FINAL IMPRESSION: 1. 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 2. Hypertension. 3. Esophagitis. The patient is supposed to be on a liquid diet in the meantime soft diet and follow up with Dr. Pierce, vascular surgeon, for the possibility of repair of that celiac artery stenosis as an outpatient if okay with him. MD FALGUNI Gilbert/DHRUV /[id number]
== END 2019-03-28 17:31 | disposition home or self-care (01) | DRG 392 ==
LOC: ER 15:53 → ERHOLD 21:55 → IMCU 23:40 → OBSVTOIN 03-26 14:23 → MED/SURG 03-27 21:19
PROVIDERS: ADMIT Internal Medicine; ATTEND Internal Medicine
DX: I77.4 Celiac artery compression syndrome (principal); I10 Essential (primary) hypertension; K20.9 Esophagitis, unspecified; E66.9 Obesity, unspecified; Z90.49 Acquired absence of other specified parts of digestive tract; K21.9 Gastro-esophageal reflux disease without esophagitis; Z68.33 Body mass index [BMI] 33.0-33.9, adult; Z83.3 Family history of diabetes mellitus; Z82.49 Family history of ischemic heart disease and other diseases of the circulatory system; R19.7 Diarrhea, unspecified; K76.0 Fatty (change of) liver, not elsewhere classified; M19.90 Unspecified osteoarthritis, unspecified site; K29.70 Gastritis, unspecified, without bleeding
CPT/HCPCS: 36415; 72198; 74175; 74177; 74185; 76705; 80048; 80053; 81001; 82150; 82550; 82553; 82948; 83605; 83690; 83735; 84484; 85025; 85610; 85730; 87040; 87086; 93005; 96361; 96367; 96376; 99284; G0378; J0360; J2270; J2405; J2543; J7030; J7050; Q9967

== ENCOUNTER 2023-01-24 18:45 | Emergency (ER) | payer BC, OTHER ==
[~2023-01-24] VITALS: Ht 167.6 cm; Wt 93.9 kg
[~2023-01-24 18:45] MED LIST changes: +DICYCLOMINE HCL20 MG PO; -FENTANYL CITRATE/PF 100MCG/2 ML INJ ONE; -HYOSCYAMINE SULFATE 0.5 MG/ML INJ ONE; -LIDOCAINE HCL 2% LOCAL INJ 5 ML SDV VIAL INJ ONE; -MIDAZOLAM HCL 2 MG/2 ML VIAL ONE; +NORVASC5 MG PO; +PANTOPRAZOLE SO40 MG PO; -PROPOFOL IV EMULSION 10 MG/ML 50 ML VIAL ONE
[2023-01-24 19:10] LABS: BASOPHILS # (AUTO) 0.1 (0.0-0.1); BASOPHILS % 0.5 % (0.0-1.0); EOSINOPHILS # (AUTO) 0.1 (0.0-0.4); EOSINOPHILS % 0.6 % (0.0-6.0); HEMATOCRIT 47.8 % (38.2-49.6); HEMOGLOBIN 16.4 g/dL (14.0-18.0); LYMPHOCYTES # (AUTO) 1.5 (1.0-3.2); LYMPHOCYTES % 15.9 % (18.0-39.1); MEAN CORPUSCULAR HEMOGLOBIN 29.5 pg (28-32); MEAN CORPUSCULAR HGB CONC 34.3 g/dL (31-35); MONOCYTES # (AUTO) 0.6 (0.2-0.8); MONOCYTES % 5.8 % (4.4-11.3); NEUTROPHILS # (AUTO) 7.4 (2.1-6.9); NEUTROPHILS % 76.9 % (38.7-80.0); PLATELET COUNT 315 x10e3/uL (140-360); RED BLOOD COUNT 5.56 x10e6/uL (4.3-5.7)
[2023-01-24 19:11] LABS: CLARITY,URINE SL CLOUDY (CLEAR); COLOR,URINE YELLOW (YELLOW); KETONES,URINE TRACE (NEGATIVE); LEUKOCYTE ESTERASE ,URINE NEGATIVE (NEGATIVE); NITRITE,URINE NEGATIVE (NEGATIVE); PROTEIN,URINE DIPSTICK NEGATIVE (NEGATIVE); URINE UROBILINOGEN 1 mg/dL (0.2 - 1)
[2023-01-24 19:22] LABS: MUCUS,URINE MODERATE (RARE); WBC,URINE (MAN) 0-5 /HPF (0-5)
[2023-01-24 19:37] LABS: ALBUMIN 3.9 g/dL (3.5-5.0); ALBUMIN/GLOBULIN RATIO 1.1 (0.8-2.0); ANION GAP 16.6 mmol/L (8-16); CALCIUM 8.9 mg/dL (8.4-10.2); CREATININE, SERUM 0.88 mg/dL (0.72-1.25); POTASSIUM 3.6 mmol/L (3.5-5.1)
[2023-01-24 19:44] LABS: CREATINE KINASE MB 1.4 ng/mL (0-5.0)
[2023-01-24] MEDS ORDERED: IOPAMIDOL 370 MG/ML 100 ML INFUS..BTL INJ ONE (20:01)
[2023-01-24] MEDS ORDERED: ONDANSETRON HCL INJ 2MG/ML 2ML 2 MG/ML VIAL IV STA (21:59)
[2023-01-24] MEDS ORDERED: Morphine 4mg INJECTION 4 MG/ML INJ IV STA (21:59)
[2023-01-24] MEDS ORDERED: ACETAMINOPHEN-1 EAC4 PO (22:02)
[2023-01-24 22:29] VITALS: BP 149/84
== END 2023-01-24 22:32 | disposition home or self-care (01) ==
LOC: ER 18:49
DX: R50.9 Fever, unspecified (principal); R10.13 Epigastric pain; K21.9 Gastro-esophageal reflux disease without esophagitis; K76.0 Fatty (change of) liver, not elsewhere classified
CPT/HCPCS: 36415; 74177; 80053; 81001; 82550; 82553; 83690; 84484; 85025; 93005; 99284; J2270; J2405; Q9967